=== PATIENT | female | born 1940 | race African-American/Black ===

== ENCOUNTER → 2017-06-22 | Outpatient (CLI) | payer OTHER ==
--- NOTE | 2017-06-22 13:14 | CARD ---
APPROVED REPORT EXAM: Two-dimensional and M-mode echocardiogram with Doppler and color Doppler. Other Information Quality : Average Rhythm : NSR INDICATION Peripheral Edema 2D DIMENSIONS RVDd3.0 (2.9-3.5cm)Left Atrium(2D)4.0 (1.6-4.0cm) IVSd1.2 (0.7-1.1cm)Aortic Root(2D)2.9 (2.0-3.7cm) LVDd4.5 (3.9-5.9cm)LVOT Diameter2.0 (1.8-2.4cm) PWd1.2 (0.7-1.1cm)LVDs2.8 (2.5-4.0cm) FS (%) 36.3 %SV59.8 ml LVEF(%)65.2 (>50%) Aortic Valve AoV Peak Kendrick.140.6cm/sAoV VTI30.7cm AO Peak GR.7.9mmHgLVOT Peak Kendrick.88.2cm/s LVOT VTI 21.67cmAO Mean GR.4mmHg YANNICK (VTI)2.12cm2 Mitral Valve MV E Oxayoybe35.2cm/sMV DECEL [id number] MV A Rvssnarz78.2cm/sMV E Mean Gr.1mmHg MV OCE89ugJ/A Ratio0.8 MV A Fyhgcsnj399nlMFO (PHT)3.85cm2 TDI E/Lateral E'8.0E/Medial E'8.7 Pulmonary Valve PV Peak Tiilxrzr822.1cm/sPV Peak Grad.6mmHg RVOT VTI21.7cm Tricuspid Valve TR P. Bodjtuiv356mp/sRAP LLKKNQRW5dhRu TR Peak Gr.35hmSwDMJC11uzRa Pulmonary Vein S1 Imlbjxhh74.5cm/sD2 Haiogyja05.1cm/s LEFT VENTRICLE The left ventricle is normal size. There is borderline concentric left ventricular hypertrophy. Left ventricle systolic function is normal. The Ejection Fraction is 60-65%. There is normal LV segmental wall motion. Tissue Doppler imaging reveals mild left ventricular diastolic dysfunction. Transmitral Doppler flow pattern is Grade I-abnormal relaxation pattern. There is no ventricular septal defect vi sualized. RIGHT VENTRICLE The right ventricle is normal size. The right ventricular systolic function is normal. ATRIA The left atrium size is normal. The right atrium size is normal. The interatrial septum is intact wit h no evidence for an atrial septal defect or patent foramen ovale as noted on 2-D or Doppler imaging. AORTIC VALVE The aortic valve is normal in structure and function. The aortic valve is trileaflet. Doppler and Col or Flow revealed no significant aortic regurgitation. There is no significant aortic valvular stenosi s. MITRAL VALVE The mitral valve is normal in structure and function. There is no mitral valve stenosis. Doppler and Color Flow revealed trace to mild mitral regurgitation. TRICUSPID VALVE The tricuspid valve is normal in structure. Doppler and Color Flow revealed mild tricuspid regurgitat ion. The PA pressure was estimated at 42 mmHg. There is no tricuspid valve stenosis. PULMONIC VALVE The pulmonic valve is not well visualized. Doppler and Color Flow revealed no pulmonic valvular regur gitation. There is no pulmonic valvular stenosis. GREAT VESSELS The aortic root is normal in size. The ascending aorta is normal in size. Normal pulmonary venous olimpia w (Doppler). The IVC is normal in size and collapses >50% with inspiration. PERICARDIAL EFFUSION There is no evidence of significant pericardial effusion. Critical Notification Critical Value: No <Conclusion> The left ventricle is normal size. Left ventricle systolic function is normal. The Ejection Fraction is 60-65%. There is borderline concentric left ventricular hypertrophy. There is no significant aortic valvular stenosis. Doppler and Color Flow revealed no significant aortic regurgitation. Doppler and Color Flow revealed trace to mild mitral regurgitation. Doppler and Color Flow revealed mild tricuspid regurgitation. The PA pressure was estimated at 42 mmHg.
== END | disposition home or self-care (01) ==
LOC: ECHO 08:27
PROVIDERS: ATTEND Internal Medicine
DX: I31.3 Pericardial effusion (noninflammatory) (principal); I51.7 Cardiomegaly
CPT/HCPCS: 93306

== ENCOUNTER → 2018-02-15 | Outpatient (CLI) | payer OTHER ==
[2018-02-16] MEDS: REGADENOSON 0.4 MG/5 ML DISP.SYRIN. IV (08:39)
== END | disposition home or self-care (01) ==
LOC: NM 08:21
DX: I36.1 Nonrheumatic tricuspid (valve) insufficiency (principal); I12.9 Hypertensive chronic kidney disease with stage 1 through stage 4 chronic kidney disease, or unspecified chronic kidney disease; E11.22 Type 2 diabetes mellitus with diabetic chronic kidney disease; N18.9 Chronic kidney disease, unspecified; I51.7 Cardiomegaly; R06.09 Other forms of dyspnea
CPT/HCPCS: 78452; 93017; 93225; 93306; 96374; 96375; 96376; A9500; J2785

== ENCOUNTER → 2018-06-20 | Outpatient (CLI) | payer OTHER ==
[2018-03-24 15:00] VITALS: BP 156/74
[~2018-06-20] MED LIST: AMLO10TA6 PO; ATOR10TA60 PO; DICL100G18 TP; ESOM40CA PO; FERR300L PO; LOSA1TAB22 PO; METF500T16 PO; METO50TA29 PO; NYST15PO9 TP; SERT100T8 PO; SUCR1TAB35 PO; WARF-31 PO
--- NOTE | 2018-06-20 11:48 | RAD ---
DATE: 06/20/2018 EXAM: MAMMO TRISHA SCREENING BILATERAL HISTORY: Routine screening COMPARISON: None available This study was interpreted with the benefit of Computerized Aided Detection (CAD). Breast Density: FATTY The breast parenchyma is primarily fatty replaced. Breast parenchyma level density A. FINDINGS: 2-D and 3-D tomosynthesis imaging was performed in CC and MLO projections. Several small smooth nodules are noted in both breasts. Multiple smooth nodules such as this are typically benign. These include a cluster of probable small lymph nodes in the posterolateral aspect of the right breast. No spiculated mass or architectural distortion is seen. Benign type calcifications are evident. No suspicious microcalcifications are identified. IMPRESSION: There is no mammographic evidence of malignancy in either breast. BI-RADS CATEGORY: 2 BENIGN FINDING(S) RECOMMENDED FOLLOW-UP: 12M 12 MONTH FOLLOW-UP PQRS compliance statement: Patient information was entered into a reminder system with a target due date for the next mammogram. Mammography is a sensitive method for finding small breast cancers, but it does not detect them all and is not a substitute for careful clinical examination. A negative mammogram does not negate a clinically suspicious finding and should not result in delay in biopsying a clinically suspicious abnormality. "Our facility is accredited by the [employer] Mammography Program."
== END | disposition home or self-care (01) ==
LOC: MAMMO 09:10
PROVIDERS: ATTEND Nurse Practitioner Family
DX: Z12.31 Encounter for screening mammogram for malignant neoplasm of breast (principal); I25.2 Old myocardial infarction; I12.9 Hypertensive chronic kidney disease with stage 1 through stage 4 chronic kidney disease, or unspecified chronic kidney disease; E11.22 Type 2 diabetes mellitus with diabetic chronic kidney disease; N18.9 Chronic kidney disease, unspecified; E78.5 Hyperlipidemia, unspecified; K21.9 Gastro-esophageal reflux disease without esophagitis; E87.6 Hypokalemia; M19.90 Unspecified osteoarthritis, unspecified site; Z86.711 Personal history of pulmonary embolism; Z86.2 Personal history of diseases of the blood and blood-forming organs and certain disorders involving the immune mechanism; Z86.718 Personal history of other venous thrombosis and embolism; Z82.49 Family history of ischemic heart disease and other diseases of the circulatory system; Z80.0 Family history of malignant neoplasm of digestive organs; Z83.3 Family history of diabetes mellitus
CPT/HCPCS: 77063; 77067

== ENCOUNTER 2021-08-05 16:17 | Inpatient (IN) | payer MEDICARE, OTHER ==
[~2021-08-05] VITALS: Ht 162.6 cm; Wt 114.2 kg
[~2021-08-05 16:17] MED LIST changes: +AMLO-187 PO; -AMLO10TA6 PO; -DICL100G18 TP; +DICL100G54 TP; +SERT-268 PO; -SERT100T8 PO
[2021-08-05] MEDS ORDERED: IV NORMAL SALINE 1000ML BAG 1,000 ML IV ONE ×3 (16:30→18:00)
[2021-08-05 16:52] LABS: BILIRUBIN,URINE MODERATE (NEG); CLARITY,URINE TURBID; COLOR,URINE ORANGE; NITRITE,URINE POSITIVE (NEG); PROTEIN,URINE 100 mg/dL (NEG-TRACE)
[2021-08-05 16:59] LABS: BACTERIA,URINE MANY /HPF (0-FEW)
[2021-08-05 17:01] LABS: HYALINE CASTS, URINE FEW /HPF
[2021-08-05 17:10] LABS: BASO % 0 % (0-3); EOS % 0 % (0-3); HEMATOCRIT 43.6 % (36.0-47.0); HEMOGLOBIN 14.4 g/dL (12.0-15.5); LYMPH # 0.6 x10^3/uL (1.0-4.8); LYMPH % 3 % (24-48); MEAN CORPUSCULAR HEMOGLOBIN 27 pg (25-35); MEAN CORPUSCULAR HGB CONC 33 g/dL (31-37); MEAN CORPUSCULAR VOLUME 82 fL (79-100); MONO # 1.1 x10^3/uL (0.0-1.1); MONO % 5 % (0-9); NEUT # 21.2 x10^3/uL (1.8-7.7); NEUT % 92 % (31-73); PLATELET COUNT 103 x10^3/uL (140-400); RED BLOOD COUNT 5.35 x10^6/uL (3.50-5.40); RED CELL DISTRIBUTION WIDTH 15.4 % (11.5-14.5)
[2021-08-05 17:21] LABS: CALCIUM 9.8 mg/dL (8.5-10.1); GFR 13.1; POTASSIUM 4.5 mmol/L (3.5-5.1)
[2021-08-05 17:27] LABS: ALBUMIN 2.8 g/dL (3.4-5.0); ALBUMIN/GLOBULIN RATIO 0.6 (1.0-1.7); MAGNESIUM 1.5 mg/dL (1.8-2.4); TOTAL BILIRUBIN 1.2 mg/dL (0.2-1.0); TOTAL PROTEIN 7.3 g/dL (6.4-8.2)
--- NOTE | 2021-08-05 17:27 | PHYS DOC ---
Past Medical History Past Medical History: Diabetes-Type II, DVT, GERD, Hypertension, Other Additional Past Medical Histor: Heart Murmur, PE, rectal fissure Additional Past Surgical Histo: IVC filter, broken ankle, rotator cuff Smoking Status: Never Smoker Alcohol Use: None Drug Use: None General Adult EDM: Chief Complaint: ALTERED MENTAL STATUS HPI: HPI: Patient is a 80 year old female who was brought here by EMS from home due to altered mental status. Patient lives alone by herself, her daughter check on her on Tuesday, she was doing okay, they went out. She then took her back home. Today she could not get a hold of her so she came by and check on her, found her on the floor next to her bed. Patient was acting confused so EMS were called to take her here for evaluation. Patient has history of hypertension, diabetic, was vaccinated for COVID-19. Upon arrival to ER, patient was awake alert but confused to place and time. Patient was was found to be hypotensive. Patient could not provide any information. Review of Systems: Review of Systems: Not able to obtain due to condition Heart Score: C/O Chest Pain: N/A Risk Factors: Risk Factors: DM, Current or recent (<one month) smoker, HTN, HLP, family history of CAD, obesity. Risk Scores: Score 0 - 3: 2.5% MACE over next 6 weeks - Discharge Home Score 4 - 6: 20.3% MACE over next 6 weeks - Admit for Clinical Observation Score 7 - 10: 72.7% MACE over next 6 weeks - Early Invasive Strategies Current Medications: Current Medications Medications (Trade) Dose Ordered Sig/Kenia Start Time Stop Time Status Last Admin Dose Admin Ceftriaxone Sodium (Rocephin) 1 gm 1X ONCE 08/05/21 17:45 08/05/21 17:46 Sodium Chloride 1,000 ml @ 1,000 mls/hr 1X ONCE 08/05/21 17:15 08/05/21 18:14 08/05/21 17:25 1,000 MLS/HR Allergies: Allergies: Allergies Coded Allergies Type Severity Reaction Last Updated Verified No Known Drug Allergies 01/05/18 No Physical Exam: PE: Constitutional: Well developed, well nourished, moderate acute distress toxic appearance. [] HENT: Normocephalic, atraumatic, bilateral external ears normal, oropharynx is very dried, no oral exudates, nose normal. [] Eyes: PERRLA, EOMI, conjunctiva normal, no discharge. [] Neck: Normal range of motion, no tenderness, supple, no stridor. [] Cardiovascular: Sinus tachycardia, regular rhythm, no murmur [] Lungs & Thorax: Bilateral breath sounds clear to auscultation [] Abdomen: Bowel sounds normal, soft, no tenderness, no masses, no pulsatile masses. [] Skin: Warm, dry, no erythema, no rash. [] Back: No tenderness, no CVA tenderness. [] Extremities: No tenderness, no cyanosis, no clubbing, ROM intact, no edema. [] Neurologic: Alert and oriented to person only, normal motor function, normal sensory function, no focal deficits noted. [] Psychologic: Affect normal, judgement normal, mood normal. [] Current Patient Data: Labs: Laboratory Tests Test 08/05/21 16:45 08/05/21 16:58 Urine Collection Type U cath Urine Color Mcnairy Urine Clarity Turbid Urine pH 5.0 Urine Specific Orange 1.025 Urine Protein 100 mg/dL Urine Glucose (UA) Negative mg/dL Urine Ketones (Stick) 15 mg/dL Urine Blood Large Urine Nitrite Positive Urine Bilirubin Moderate Urine Urobilinogen Dipstick 1.0 mg/dL Urine Leukocyte Esterase Moderate Urine RBC 11-20 /HPF Urine WBC 11-20 /HPF Urine Bacteria Many /HPF Urine Hyaline Casts Few /HPF Urine Mucus Slight /LPF White Blood Count 23.0 x10^3/uL Red Blood Count 5.35 x10^6/uL Hemoglobin 14.4 g/dL Hematocrit 43.6 % Mean Corpuscular Volume 82 fL Mean Corpuscular Hemoglobin 27 pg Mean Corpuscular Hemoglobin Concent 33 g/dL Red Cell Distribution Width 15.4 % Platelet Count 103 x10^3/uL Neutrophils (%) (Auto) 92 % Lymphocytes (%) (Auto) 3 % Monocytes (%) (Auto) 5 % Eosinophils (%) (Auto) 0 % Basophils (%) (Auto) 0 % Neutrophils # (Auto) 21.2 x10^3/uL Lymphocytes # (Auto) 0.6 x10^3/uL Monocytes # (Auto) 1.1 x10^3/uL Eosinophils # (Auto) 0.0 x10^3/uL Basophils # (Auto) 0.0 x10^3/uL Segmented Neutrophils % 45 % Band Neutrophils % 39 % Lymphocytes % 3 % Monocytes % 3 % Metamyelocytes % 10 % Toxic Granulation Present Toxic Vacuolation Present Dohle Bodies Present Platelet Estimate Decreased Sodium Level 141 mmol/L Potassium Level 4.5 mmol/L Chloride Level 105 mmol/L Carbon Dioxide Level 23 mmol/L Anion Gap 13 Blood Urea Nitrogen 38 mg/dL Creatinine 4.0 mg/dL Estimated GFR (Cockcroft-Gault) 13.1 BUN/Creatinine Ratio 10 Glucose Level 204 mg/dL Lactic Acid Level 6.2 mmol/L Calcium Level 9.8 mg/dL Magnesium Level 1.5 mg/dL Total Bilirubin 1.2 mg/dL Aspartate Amino Transf (AST/SGOT) 387 U/L Alanine Aminotransferase (ALT/SGPT) 109 U/L Alkaline Phosphatase 68 U/L Troponin I High Sensitivity 313 ng/L XB-Mvc-K-Type Natriuretic Peptide 88000 pg/mL Total Protein 7.3 g/dL Albumin 2.8 g/dL Albumin/Globulin Ratio 0.6 Current Medications Medications (Trade) Dose Ordered Sig/Kenia Route PRN Reason Start Time Stop Time Status Last Admin Dose Admin Sodium Chloride 1,000 ml @ 1,000 mls/hr 1X ONCE IV 08/05/21 16:30 08/05/21 17:29 DC 08/05/21 17:24 Ceftriaxone Sodium (Rocephin) 1 gm 1X ONCE IVP 08/05/21 17:45 08/05/21 17:46 08/05/21 17:42 Sodium Chloride 1,000 ml @ 1,000 mls/hr 1X ONCE IV 08/05/21 17:15 08/05/21 18:14 08/05/21 17:25 Magnesium Sulfate 50 ml @ 25 mls/hr 1X ONCE IV 08/05/21 17:45 08/05/21 19:44 Laboratory Tests Test 08/05/21 16:45 08/05/21 16:58 Urine Collection Type U cath Urine Color Mcnairy Urine Clarity Turbid Urine pH 5.0 (<5.0-8.0) Urine Specific Orange 1.025 (1.000-1.030) Urine Protein 100 mg/dL (NEG-TRACE) Urine Glucose (UA) Negative mg/dL (NEG) Urine Ketones (Stick) 15 mg/dL (NEG) Urine Blood Large (NEG) Urine Nitrite Positive (NEG) Urine Bilirubin Moderate (NEG) Urine Urobilinogen Dipstick 1.0 mg/dL (0.2 mg/dL) Urine Leukocyte Esterase Moderate (NEG) Urine RBC 11-20 /HPF (0-2) Urine WBC 11-20 /HPF (0-4) Urine Bacteria Many /HPF (0-FEW) Urine Hyaline Casts Few /HPF Urine Mucus Slight /LPF White Blood Count 23.0 x10^3/uL (4.0-11.0) H Red Blood Count 5.35 x10^6/uL (3.50-5.40) Hemoglobin 14.4 g/dL (12.0-15.5) Hematocrit 43.6 % (36.0-47.0) Mean Corpuscular Volume 82 fL (79-100) Mean Corpuscular Hemoglobin 27 pg (25-35) Mean Corpuscular Hemoglobin Concent 33 g/dL (31-37) Red Cell Distribution Width 15.4 % (11.5-14.5) H Platelet Count 103 x10^3/uL (140-400) L Neutrophils (%) (Auto) 92 % (31-73) H Lymphocytes (%) (Auto) 3 % (24-48) L Monocytes (%) (Auto) 5 % (0-9) Eosinophils (%) (Auto) 0 % (0-3) Basophils (%) (Auto) 0 % (0-3) Neutrophils # (Auto) 21.2 x10^3/uL (1.8-7.7) H Lymphocytes # (Auto) 0.6 x10^3/uL (1.0-4.8) L Monocytes # (Auto) 1.1 x10^3/uL (0.0-1.1) Eosinophils # (Auto) 0.0 x10^3/uL (0.0-0.7) Basophils # (Auto) 0.0 x10^3/uL (0.0-0.2) Platelet Estimate Pending Sodium Level 141 mmol/L (136-145) Potassium Level 4.5 mmol/L (3.5-5.1) Chloride Level 105 mmol/L (98-107) Carbon Dioxide Level 23 mmol/L (21-32) Anion Gap 13 (6-14) Blood Urea Nitrogen 38 mg/dL (7-20) H Creatinine 4.0 mg/dL (0.6-1.0) H Estimated GFR (Cockcroft-Gault) 13.1 BUN/Creatinine Ratio 10 (6-20) Glucose Level 204 mg/dL (70-99) H Calcium Level 9.8 mg/dL (8.5-10.1) Magnesium Level Pending Total Bilirubin Pending Aspartate Amino Transferase (AST) Pending Alanine Aminotransferase (ALT) Pending Alkaline Phosphatase Pending Total Protein Pending Albumin Pending Albumin/Globulin Ratio Pending Laboratory Tests 08/05/21 16:58 Laboratory Tests 08/05/21 16:58 EKG: EKG: EKG was done at 1625, heart rate 120 bpm, sinus tachycardia, left axis deviation, no ST segment elevation. [] Radiology/Procedures: Radiology/Procedures: [][facility] [address] [place] [address] IMAGING REPORT Signed PATIENT: AZALEA ROMERO ACCOUNT: [id number] : 1940 LOCATION: ER AGE: 80 SEX: F EXAM STATUS: REG ER ORD. PHYSICIAN: CYRUS MCCABE DO REASON: FELL OUT OF BED, ams PROCEDURE: CT HEAD AND CERVICAL SPINE WO CT HEAD AND C-SPINE WO Date: 08/05/2021 4:40 PM Clinical Indication: Reason: FELL OUT OF BED, ams / Spl. Instructions: / History: Comparison: None. Technique: 5 mm axial tomographic images were obtained of the head without contrast. These were viewed on brain and bone windows. Noncontrast CT of the cervical spine was performed. Sagittal and coronal reformats were performed and evaluated. One or more of the following dose reduction techniques were utilized: Automated exposure control (AEC), Adjustment of mA and/or kV according to patient size, Use of iterative reconstruction technique such as ASiR, CT scan done according to ALARA and image gently/image wisely HEAD FINDINGS: Mild generalized cerebral and cerebellar volume loss. Minimal nonspecific periventricular hypoattenuation, most commonly seen with chronic small vessel ischemic disease. No intra- or extra-axial mass or fluid collection. No acute hemorrhage. The ventricles are normal in size, shape, and morphology. The mosqueda-white matter junction is normal. The basilar cisterns are patent. The visualized paranasal sinuses are normal. The visualized portions of the orbits and globes are normal. The mastoid air cells are clear. No aggressive osseous lesion or fracture. CERVICAL SPINE FINDINGS: No acute fracture. Mild multilevel degenerative disc space height loss most pronounced at C5-C6. Minimal grade 1 anterolisthesis of C4 on C5. Multilevel mild to moderate neuroforaminal narrowing secondary to uncovertebral arthrosis most pronounced at the left C5-C6 neural foramen resulting in moderate to severe neural foraminal narrowing. Multilevel mild facet arthrosis. No paravertebral soft tissue swelling. There is a 1.5 cm hypoattenuating nodule with subtle peripheral calcifications in the right thyroid lobe. No cervical lymphadenopathy. Bilateral carotid atherosclerosis. The visualized aerodigestive tract is normal. Visualized portions of the lung apices are degraded secondary to motion however there is no evidence of acute process IMPRESSION: 1. No acute intracranial process. 2. No acute cervical spine fracture. 3. Mild cerebral volume loss. Mild chronic small vessel ischemic disease. 4. Mild to moderate degenerative cervical spondylosis. Electronically signed by: Barrera Delgado DO (08/05/2021 5:38 PM) [facility] DICTATED and SIGNED BY: BARRERA DELGADO DO DATE: 08/05/21 [id number] 0 Course & Med Decision Making: Course & Med Decision Making Pertinent Labs and Imaging studies reviewed. (See chart for details) Patient is a 80-year-old female who was brought here by EMS from home due to altered mental status. Patient was found to be in severe sepsis, dehydrated, acute renal failure with urinary tract infection. Her magnesium level was low. Patient was given IV fluids in the ED, patient was given IV antibiotic in ED. CT scan her head did not show any acute problem. Patient be admitted to hospital for further evaluation and treatment. Discussed with patient daughter her condition.. Discussed with hospitalist on-call Dr. Richard Norris who agreed to admit the patient. Due to a high probability of clinically significant, life-threatening deterioration, the patient required my highest level of preparedness to intervene emergently and I personally spent this critical care time directly and personally managing the patient. This critical care time included obtaining the history; examining the patient; pulse oximetry; real-time ordering and review of studies; arranging urgent treatment with development of a management plan; evaluation of patient's response to treatment; frequent reassessment; and, discussions with other providers. This critical care time was performed to assess and manage the high probability of imminent, life-threatening deterioration that could result in multi-organ failure. It was not inclusive of separately billable procedures. Please see the Course and Medical Decision Making section and the rest of the note for further information on patient assessment and treatment. Critical care time was [45] minutes which includes time at bedside, spent in discussion of patient's care with specialist and/or family members, with interpretation of laboratory and/or radiological studies and is exclusive of procedures. Dragon Disclaimer: Dragon Disclaimer: This electronic medical record was generated, in whole or in part, using a voice recognition dictation system. Departure Departure Impression: Primary Impression: Dehydration Additional Impressions: Sepsis UTI (urinary tract infection) Renal failure Hypomagnesemia Disposition: ADMITTED INPATIENT Admitting Physician: SARA (Dr. Richard Norris) Condition: IMPROVED Referrals: UNKNOWN PCP NAME (PCP) CYRUS MCCABE DO Aug 05, 2021 17:27
[2021-08-05 17:31] LABS: % BANDS 39 % (0-9); % LYMPHS 3 % (24-48); % METAS 10 % (0-0); % MONOS 3 % (0-10); % SEGS 45 % (35-66); PLT ESTIMATE DECREASED (ADEQUATE); TOXIC VACUOLATION PRESENT
[2021-08-05 17:32] LABS: TOXIC GRANULATION PRESENT
--- NOTE | 2021-08-05 17:41 | RAD ---
CT HEAD AND C-SPINE WO Date: 08/05/2021 4:40 PM Clinical Indication: Reason: FELL OUT OF BED, ams / Spl. Instructions: / History: Comparison: None. Technique: 5 mm axial tomographic images were obtained of the head without contrast. These were view ed on brain and bone windows. Noncontrast CT of the cervical spine was performed. Sagittal and hawley l reformats were performed and evaluated. One or more of the following dose reduction techniques were utilized: Automated exposure control (AEC), Adjustment of mA and/or kV according to patient size, Us e of iterative reconstruction technique such as ASiR, CT scan done according to ALARA and image gentl y/image wisely HEAD FINDINGS: Mild generalized cerebral and cerebellar volume loss. Minimal nonspecific periventricular hypoattenua tion, most commonly seen with chronic small vessel ischemic disease. No intra- or extra-axial mass or fluid collection. No acute hemorrhage. The ventricles are normal in size, shape, and morphology. The mosqueda-white matter junction is normal. The basilar cisterns are paten t. The visualized paranasal sinuses are normal. The visualized portions of the orbits and globes are no rmal. The mastoid air cells are clear. No aggressive osseous lesion or fracture. CERVICAL SPINE FINDINGS: No acute fracture. Mild multilevel degenerative disc space height loss most pronounced at C5-C6. Mini mal grade 1 anterolisthesis of C4 on C5. Multilevel mild to moderate neuroforaminal narrowing seconda ry to uncovertebral arthrosis most pronounced at the left C5-C6 neural foramen resulting in moderate to severe neural foraminal narrowing. Multilevel mild facet arthrosis. No paravertebral soft tissue s welling. There is a 1.5 cm hypoattenuating nodule with subtle peripheral calcifications in the right thyroid l obe. No cervical lymphadenopathy. Bilateral carotid atherosclerosis. The visualized aerodigestive tra ct is normal. Visualized portions of the lung apices are degraded secondary to motion however there is no evidence of acute process IMPRESSION: 1. No acute intracranial process. 2. No acute cervical spine fracture. 3. Mild cerebral volume loss. Mild chronic small vessel ischemic disease. 4. Mild to moderate degenerative cervical spondylosis. Electronically signed by: Ernesto Delgado DO (08/05/2021 5:38 PM) [facility]
[2021-08-05] MEDS ORDERED: ONDANSETRON PF 4 MG/2 ML VIAL. IVP PRN ×2 (17:45→18:45)
[2021-08-05] MEDS ORDERED: MAGNESIUM SULFATE 2GM 50 ML IV ONE (17:45)
[2021-08-05] MEDS ORDERED: cefTRIAXone IV Push 1 GM VIAL. IVP ONE (17:45)
[2021-08-05] MEDS: IV NORMAL SALINE 1000ML BAG 1,000 ML IV SCH ×2 (17:45→18:45)
--- NOTE | 2021-08-05 18:07 | RAD ---
EXAM: PELVIS 1 VIEW. HISTORY: Fall, pelvic pain. COMPARISON: None. FINDINGS: No fractures are identified. The joint spaces and alignment of both hips are maintained. Th ere are moderate degenerative changes of the lower lumbar spine. IMPRESSION: 1. No fracture. Electronically signed by: Leslie Burks MD (08/05/2021 6:05 PM) [facility]
--- NOTE | 2021-08-05 18:08 | RAD ---
EXAM: CHEST ONE VIEW. HISTORY: Shortness of breath, fall. COMPARISON: 03/21/2018. FINDINGS: A frontal view of the chest is obtained. There are interstitial and airspace opacities in both bases. The inspiration is small. There is a tico cified granuloma on the left. There is no pneumothorax or pleural effusion. The heart is not enlarged . IMPRESSION: 1. Bibasilar atelectasis versus multifocal atypical infiltrates. Electronically signed by: Leslie Burks MD (08/05/2021 6:05 PM) [facility]
--- NOTE | 2021-08-05 18:42 | EKG ---
[facility] [address] [place] [address] Test Date: 2021-08-05 Test Time: 16:24:42 Pat Name: AZALEA ROMERO Department: Room: Gender: F Clinical Research Director: : 1940 Requested By: CYRUS MCCABE Order Number: [id number] Reading MD: Denver Stubbs Measurements Intervals Lee Rate: 120 P: 41 NE: 178 QRS: -21 QRSD: 80 T: 105 QT: 292 QTc: 417 Interpretive Statements SINUS TACHYCARDIA LEFTWARD AXIS CONSIDER LEFT VENTRICULAR HYPERTROPHY T ABNORMALITY IN HIGH LATERAL LEADS ABNORMAL ECG Electronically Signed On 08-09-2021 9:27:31 [employer]ICK [employer] SUPERVIS[employer] by Denver Stubbs
[2021-08-05] MEDS ORDERED: ACETAMINOPHEN 325 MG TABLET. PO PRN (18:45)
[2021-08-05] MEDS ORDERED: DEXTROSE 50% 25 GM / 50ML DISP.SYRIN. IV PRN (18:45)
[2021-08-05] MEDS ORDERED: PROCHLORPERAZINE 10 MG/2 ML VIAL. IV PRN (18:45)
[2021-08-05] MEDS ORDERED: ZOLPIDEM 5 MG TABLET. PO PRN (18:45)
[2021-08-05] MEDS ORDERED: SENNOSIDES 8.6 MG TABLET PO PRN (18:45)
[2021-08-05] MEDS ORDERED: DOCUSATE SODIUM 100 MG CAPSULE. PO PRN (18:45)
[2021-08-05] MEDS ORDERED: LORazepam 0.5 MG TABLET PO PRN (18:45)
--- NOTE | 2021-08-05 18:47 | PDOC1 ---
History and Physical Date of Service: DOS: DATE: 08/05/21 TIME: 18:30 Chief Complaint: Chief Complain: Found unresponsive History of Present Illness: HPI: History obtained from discussion with the ED physician, daughter, and chart review: 80-year-old female who has a past medical history of diabetes mellitus type 2, hypertension, GERD, dyslipidemia who is brought in due to altered mental status. Patient lives alone by herself and has a daughter who checks up on her on Tuesday but she lives in [place]. Last time daughter saw the patient was on Tuesday and she has not heard from the patient since that time. Apparently today daughter came by to check on her and found her on the floor next to her bed. There was no incontinence. Patient was acting confused so EMS was called in order to bring the patient to the ED for further evaluation. Patient is vaccinated for COVID-19. Patient's chart, labs, images were reviewed and discussed with RN patient was awake and alert but confused to place and time. Past Medical/Surgical History: PMH/PSH: Past Medical History: Diabetes-Type II, DVT, GERD, Hypertension, Heart Murmur, PE, rectal fissure Additional Past Surgical Histo: IVC filter, broken ankle, rotator cuff Allergies: Allergies: Coded Allergies: No Known Drug Allergies (Unverified , 01/05/18) Family History: Family History: Reviewed with no relevant findings Social History: Social History: Denies any alcohol drug or tobacco abuse Current Medications: Current Medications Current Medications Sodium Chloride 1,000 ml @ 1,000 mls/hr 1X ONCE IV Last administered on 08/05/21at 17:24; Start 08/05/21 at 16:30; Stop 08/05/21 at 17:29; Status DC Ceftriaxone Sodium (Rocephin) 1 gm 1X ONCE IVP Last administered on 08/05/21at 17:42; Start 08/05/21 at 17:45; Stop 08/05/21 at 17:46; Status DC Sodium Chloride 1,000 ml @ 1,000 mls/hr 1X ONCE IV Last administered on 08/05/21at 17:25; Start 08/05/21 at 17:15; Stop 08/05/21 at 18:14; Status DC Magnesium Sulfate 50 ml @ 25 mls/hr 1X ONCE IV ; Start 08/05/21 at 17:45; Stop 08/05/21 at 19:44 Ondansetron HCl (Zofran) 4 mg PRN Q8HRS PRN IVP NAUSEA/VOMITING; Start 08/05/21 at 17:45; Stop 08/06/21 at 17:44 Sodium Chloride 1,000 ml @ 100 mls/hr Q10H IV ; Start 08/05/21 at 17:45; Stop 08/06/21 at 17:44 Sodium Chloride 1,000 ml @ 1,000 mls/hr 1X ONCE IV ; Start 08/05/21 at 18:00; Stop 08/05/21 at 18:59 Active Scripts Active Atorvastatin Calcium 10 Mg Tablet 10 Mg PO QHS 30 Days Ferrous Sulfate 300 Mg/5 Ml Liquid 300 Mg PO BIDWMEALS 30 Days Amlodipine Besylate 10 Mg Tablet 10 Mg PO DAILY 30 Days Reported Metformin Hcl 500 Mg Tablet 500 Mg PO BIDWMEALS Voltaren (Diclofenac Sodium) 100 Gm Gel..gram. 2 Gm TP QID Nystatin 15 Gm Powder 1 Luis Alberto TP TID Nexium Capsule (Esomeprazole Magnesium) 40 Mg Capsule.dr 40 Mg PO DAILYAC Losartan-Hctz 100-25 Mg Tab (Losartan/Hydrochlorothiazide) 1 Each Tablet 1 Tab PO DAILY Carafate (Sucralfate) 1 Gm Tablet 1 Gm PO QID Sertraline Hcl 100 Mg Tablet 100 Mg PO PRN QHS PRN ROS: Review of Systems Review of System REVIEW OF SYSTEMS: GENERAL: Denies weakness SKIN: No bruising, hair changes or rashes. EYES: No blurred, double or loss of vision. NOSE AND THROAT: No history of nosebleeds, hoarseness or sore throat. HEART: No history of palpitations, chest pain or shortness of breath on exertion. LUNGS: Denies cough, hemoptysis, wheezing or shortness of breath. GASTROINTESTINAL: Denies changes in appetite, nausea, vomiting, diarrhea or constipation. GENITOURINARY: No history of frequency, urgency, hesitancy or nocturia. NEUROLOGIC: Denies history of numbness, tingling, or tremor. PSYCHIATRIC: No history of panic, anxiety or depression. ENDOCRINE: No history of heat or cold intolerance, polyuria or polydipsia. EXTREMITIES: Denies joint pain, pain on walking or stiffness. Physical Exam: Vital Signs: Vital Signs Date Time Temp Pulse Resp B/P (MAP) Pulse Ox O2 Delivery O2 Flow Rate FiO2 08/05/21 16:17 98.2 121 24 100/59 (73) 78 Room Air 98.2 Physcial Exam: GEN: No apparent distress. Alert and oriented HEENT: Normal cephalic, atraumatic, external auditory canals are patent EYES: Extraocular muscles are intact, pupil are equally round and reactive to light and accommodation MUSCULOSKELETAL: Well developed , well nourished, good range of motion ENDOCRINE: No thyromegaly was palpated LYMPHATICS: No cervical chain or axillary nodes were noted HEMATOPOIETIC: No bruising NECK: Supple, no JVD, no thyromegaly was noted LUNGS: Clear to auscultation in all lung che without rhonchi or wheezing HEART: RRR, S!, S2 present. Peripheral pulses intact, no obvious murmurs noted ABDOMEN: Soft, nontender. Positive bowel sounds, no organomegaly, normal bowel sounds EXTREMITIES: Without clubbing, cyanosis, or edema. Pedal pulses intact. Negative Homans sign NEUROLOGIC: Normal speech and tone. A&O x 3, moves all extremities, no obvious focal deficits PSYCHIATRIC: Normal affect, normal mood. Stable SKIN: No ulcerations or rashes, good skin turgor, no jaundice VASCULAR: Good capillary refill, neurovascular bundle appears to be intact Labs: Labs: Laboratory Tests Test 08/05/21 16:45 08/05/21 16:58 08/05/21 17:32 Urine Collection Type U cath Urine Color [place] Urine Clarity Turbid Urine pH 5.0 (<5.0-8.0) Urine Specific [place] 1.025 (1.000-1.030) Urine Protein 100 mg/dL (NEG-TRACE) Urine Glucose (UA) Negative mg/dL (NEG) Urine Ketones (Stick) 15 mg/dL (NEG) Urine Blood Large (NEG) Urine Nitrite Positive (NEG) Urine Bilirubin Moderate (NEG) Urine Urobilinogen Dipstick 1.0 mg/dL (0.2 mg/dL) Urine Leukocyte Esterase Moderate (NEG) Urine RBC 11-20 /HPF (0-2) Urine WBC 11-20 /HPF (0-4) Urine Bacteria Many /HPF (0-FEW) Urine Hyaline Casts Few /HPF Urine Mucus Slight /LPF White Blood Count 23.0 x10^3/uL (4.0-11.0) Red Blood Count 5.35 x10^6/uL (3.50-5.40) Hemoglobin 14.4 g/dL (12.0-15.5) Hematocrit 43.6 % (36.0-47.0) Mean Corpuscular Volume 82 fL (79-100) Mean Corpuscular Hemoglobin 27 pg (25-35) Mean Corpuscular Hemoglobin Concent 33 g/dL (31-37) Red Cell Distribution Width 15.4 % (11.5-14.5) Platelet Count 103 x10^3/uL (140-400) Neutrophils (%) (Auto) 92 % (31-73) Lymphocytes (%) (Auto) 3 % (24-48) Monocytes (%) (Auto) 5 % (0-9) Eosinophils (%) (Auto) 0 % (0-3) Basophils (%) (Auto) 0 % (0-3) Neutrophils # (Auto) 21.2 x10^3/uL (1.8-7.7) Lymphocytes # (Auto) 0.6 x10^3/uL (1.0-4.8) Monocytes # (Auto) 1.1 x10^3/uL (0.0-1.1) Eosinophils # (Auto) 0.0 x10^3/uL (0.0-0.7) Basophils # (Auto) 0.0 x10^3/uL (0.0-0.2) Segmented Neutrophils % 45 % (35-66) Band Neutrophils % 39 % (0-9) Lymphocytes % 3 % (24-48) Monocytes % 3 % (0-10) Metamyelocytes % 10 % (0-0) Toxic Granulation Present Toxic Vacuolation Present Dohle Bodies Present Platelet Estimate Decreased (ADEQUATE) Sodium Level 141 mmol/L (136-145) Potassium Level 4.5 mmol/L (3.5-5.1) Chloride Level 105 mmol/L (98-107) Carbon Dioxide Level 23 mmol/L (21-32) Anion Gap 13 (6-14) Blood Urea Nitrogen 38 mg/dL (7-20) Creatinine 4.0 mg/dL (0.6-1.0) Estimated GFR (Cockcroft-Gault) 13.1 BUN/Creatinine Ratio 10 (6-20) Glucose Level 204 mg/dL (70-99) Lactic Acid Level 6.2 mmol/L (0.4-2.0) Calcium Level 9.8 mg/dL (8.5-10.1) Magnesium Level 1.5 mg/dL (1.8-2.4) Total Bilirubin 1.2 mg/dL (0.2-1.0) Aspartate Amino Transf (AST/SGOT) 387 U/L (15-37) Alanine Aminotransferase (ALT/SGPT) 109 U/L (14-59) Alkaline Phosphatase 68 U/L (46-116) Troponin I High Sensitivity 313 ng/L (4-50) UB-Aul-K-Type Natriuretic Peptide 93129 pg/mL (0-449) Total Protein 7.3 g/dL (6.4-8.2) Albumin 2.8 g/dL (3.4-5.0) Albumin/Globulin Ratio 0.6 (1.0-1.7) SARS-CoV-2 Antigen (Rapid) Negative (NEGATIVE) Laboratory Tests Test 08/05/21 16:45 08/05/21 16:58 08/05/21 17:32 Urine Collection Type U cath Urine Color [place] Urine Clarity Turbid Urine pH 5.0 (<5.0-8.0) Urine Specific [place] 1.025 (1.000-1.030) Urine Protein 100 mg/dL (NEG-TRACE) Urine Glucose (UA) Negative mg/dL (NEG) Urine Ketones (Stick) 15 mg/dL (NEG) Urine Blood Large (NEG) Urine Nitrite Positive (NEG) Urine Bilirubin Moderate (NEG) Urine Urobilinogen Dipstick 1.0 mg/dL (0.2 mg/dL) Urine Leukocyte Esterase Moderate (NEG) Urine RBC 11-20 /HPF (0-2) Urine WBC 11-20 /HPF (0-4) Urine Bacteria Many /HPF (0-FEW) Urine Hyaline Casts Few /HPF Urine Mucus Slight /LPF White Blood Count 23.0 x10^3/uL (4.0-11.0) Red Blood Count 5.35 x10^6/uL (3.50-5.40) Hemoglobin 14.4 g/dL (12.0-15.5) Hematocrit 43.6 % (36.0-47.0) Mean Corpuscular Volume 82 fL (79-100) Mean Corpuscular Hemoglobin 27 pg (25-35) Mean Corpuscular Hemoglobin Concent 33 g/dL (31-37) Red Cell Distribution Width 15.4 % (11.5-14.5) Platelet Count 103 x10^3/uL (140-400) Neutrophils (%) (Auto) 92 % (31-73) Lymphocytes (%) (Auto) 3 % (24-48) Monocytes (%) (Auto) 5 % (0-9) Eosinophils (%) (Auto) 0 % (0-3) Basophils (%) (Auto) 0 % (0-3) Neutrophils # (Auto) 21.2 x10^3/uL (1.8-7.7) Lymphocytes # (Auto) 0.6 x10^3/uL (1.0-4.8) Monocytes # (Auto) 1.1 x10^3/uL (0.0-1.1) Eosinophils # (Auto) 0.0 x10^3/uL (0.0-0.7) Basophils # (Auto) 0.0 x10^3/uL (0.0-0.2) Segmented Neutrophils % 45 % (35-66) Band Neutrophils % 39 % (0-9) Lymphocytes % 3 % (24-48) Monocytes % 3 % (0-10) Metamyelocytes % 10 % (0-0) Toxic Granulation Present Toxic Vacuolation Present Dohle Bodies Present Platelet Estimate Decreased (ADEQUATE) Sodium Level 141 mmol/L (136-145) Potassium Level 4.5 mmol/L (3.5-5.1) Chloride Level 105 mmol/L (98-107) Carbon Dioxide Level 23 mmol/L (21-32) Anion Gap 13 (6-14) Blood Urea Nitrogen 38 mg/dL (7-20) Creatinine 4.0 mg/dL (0.6-1.0) Estimated GFR (Cockcroft-Gault) 13.1 BUN/Creatinine Ratio 10 (6-20) Glucose Level 204 mg/dL (70-99) Lactic Acid Level 6.2 mmol/L (0.4-2.0) Calcium Level 9.8 mg/dL (8.5-10.1) Magnesium Level 1.5 mg/dL (1.8-2.4) Total Bilirubin 1.2 mg/dL (0.2-1.0) Aspartate Amino Transf (AST/SGOT) 387 U/L (15-37) Alanine Aminotransferase (ALT/SGPT) 109 U/L (14-59) Alkaline Phosphatase 68 U/L (46-116) Troponin I High Sensitivity 313 ng/L (4-50) MF-Ehp-S-Type Natriuretic Peptide 27564 pg/mL (0-449) Total Protein 7.3 g/dL (6.4-8.2) Albumin 2.8 g/dL (3.4-5.0) Albumin/Globulin Ratio 0.6 (1.0-1.7) SARS-CoV-2 Antigen (Rapid) Negative (NEGATIVE) Images: Images PROCEDURE: CHEST AP ONLY IMPRESSION: 1. Bibasilar atelectasis versus multifocal atypical infiltrates. Assessment/Plan Assessment/Plan Sepsis Bilateral atypical pneumonia, possible gram-negative organism Acute UTI Acute infectious and metabolic encephalopathy Lactic acidosis WES due to vasomotor nephropathy Hyperglycemia uncontrolled Elevated BNP History of hypertension History of depression anxiety History of diabetes mellitus History of GERD Admit to hospitalist service for further management R ISS and Accu-Cheks Continue IV fluids Continue empiric IV antibiotics Pending urine cultures Pending TSH, B12, folate levels Pending urine toxic drug screen Delirium prevention modalities Provide adequate lighting (open curtains during the day, turn the lights off at night) Provide frequent personal contact with family, friends, and staff or TV Encourage early and frequent mobilization Rehab screening ordered IV Haldol as needed for agitation, consider sitter as needed if non-redirectable agitation Avoid physical restraints, catheters or tubes, and benzodiazepines Nutrition consult if there is malnutrition or concern for vitamin deficiencies Hold all antihypertensive medications at this time due to sepsis alert Avoid nephrotoxic agents Strict I's and O's Heparin for DVT prophylaxis ADA diet Full code Discussed with RN and SW Dispo inpatient management as above DPOA is the daughter A total of 45 minutes of critical care time was spent in reviewing chart, labs, and images. Discussed with RN and SW. In addition to my E/M visit, advance care planning done with A total time of 20 minutes was spent from 530 to 540 face to face in discussion with the daughter regarding the patient's goals of care, CODE STATUS. Justifications for Admission Other Justification EDUARDA DOWD MD Aug 05, 2021 18:47
[2021-08-05 19:00] VITALS: BP 110/55
[2021-08-05 23:00] VITALS: BP 132/77
[2021-08-06] MEDS: DOXYCYCLINE HYCLATE 100 MG in IV DEXTROSE 5% 100ML 100 ML IV SCH ×2 (00:47→10:49)
[2021-08-06 01:22] LABS: BASO % 0 % (0-3); EOS # 0.8 x10^3/uL (0.0-0.7); EOS % 4 % (0-3); HEMATOCRIT 44.4 % (36.0-47.0); HEMOGLOBIN 14.5 g/dL (12.0-15.5); LYMPH # 0.5 x10^3/uL (1.0-4.8); LYMPH % 2 % (24-48); MEAN CORPUSCULAR HEMOGLOBIN 27 pg (25-35); MEAN CORPUSCULAR HGB CONC 33 g/dL (31-37); MEAN CORPUSCULAR VOLUME 82 fL (79-100); MONO # 0.9 x10^3/uL (0.0-1.1); MONO % 4 % (0-9); NEUT # 17.3 x10^3/uL (1.8-7.7); NEUT % 89 % (31-73); PLATELET COUNT 83 x10^3/uL (140-400); RED CELL DISTRIBUTION WIDTH 15.5 % (11.5-14.5); WHITE BLOOD COUNT 19.4 x10^3/uL (4.0-11.0)
[2021-08-06 02:03] LABS: CALCIUM 9.4 mg/dL (8.5-10.1); CREATININE 3.7 mg/dL (0.6-1.0); GFR 14.3; MAGNESIUM 1.5 mg/dL (1.8-2.4); PHOSPHORUS 3.5 mg/dL (2.6-4.7); POTASSIUM 4.1 mmol/L (3.5-5.1)
[2021-08-06 03:00] VITALS: BP 122/57
[2021-08-06] MEDS: IV NORMAL SALINE 1000ML BAG 1,000 ML IV SCH ×3 (03:45→14:22)
[2021-08-06] MEDS ORDERED: CETI10TA16 PO (05:11)
[2021-08-06] MEDS ORDERED: FAMO40TA4 PO (05:11)
[2021-08-06] MEDS ORDERED: FURO20TA3 PO (05:11)
[2021-08-06] MEDS ORDERED: CHOL500021 PO (05:11)
[2021-08-06 07:00] VITALS: BP 117/63
[2021-08-06] MEDS: PANTOPRAZOLE 40 MG TABLET.DR. PO SCH (07:30)
[2021-08-06] MEDS: INSULIN LISPRO 300 UNITS/3 ML VIAL. SQ SCH ×3 (08:00→17:00)
[2021-08-06] MEDS: ENOXAPARIN 30 MG/0.3 ML SYRINGE. SQ SCH (10:52)
[2021-08-06 11:00] VITALS: BP 125/65
--- NOTE | 2021-08-06 11:12 | NUR ---
SW following. Discussed with RN, pt from home alone, 5L (does not use oxygen at home), clear liquid diet, COVID-19 negative. PT/OT ordered. ID consulted. Pt was found down at home. SW will continue to follow.
--- NOTE | 2021-08-06 12:13 | PDOC ---
[employer] PROGRESS NOTE Date of Service DOS: DATE: 08/06/21 TIME: 12:09 Chief Complaint Chief Complaint Sepsis Bilateral atypical pneumonia, possible gram-negative organism Acute UTI Acute infectious and metabolic encephalopathy Lactic acidosis WES due to vasomotor nephropathy Hyperglycemia uncontrolled Elevated BNP History of hypertension History of depression anxiety History of diabetes mellitus History of GERD History of Present Illness History of Present Illness 08/06/21 Patient seen and examined Reviewed chart Discussed with RN Mitts in place for patient safety Unsure of patient's baseline mental status Vitals/I&O Vitals/I&O: Vital Signs Date Time Temp Pulse Resp B/P (MAP) Pulse Ox O2 Delivery O2 Flow Rate FiO2 08/06/21 07:00 98.2 106 24 117/63 (81) 92 Nasal Cannula 6.0 98.2 I & O 08/05/21 08/05/21 08/06/21 15:00 23:00 07:00 Intake Total 2000 ml Output Total 0 ml 200 ml Balance 2000 ml -200 ml Physical Exam General: Alert, No acute distress, Other (pleasantly confused) Heart: Regular rate Lungs: Clear Extremities: No edema Skin: No rashes Labs Labs: Laboratory Tests Test 08/05/21 16:45 08/05/21 16:58 08/05/21 17:32 08/06/21 01:10 Urine Collection Type U cath Urine Color [place] Urine Clarity Turbid Urine pH 5.0 (<5.0-8.0) Urine Specific [place] 1.025 (1.000-1.030) Urine Protein 100 mg/dL (NEG-TRACE) Urine Glucose (UA) Negative mg/dL (NEG) Urine Ketones (Stick) 15 mg/dL (NEG) Urine Blood Large (NEG) Urine Nitrite Positive (NEG) Urine Bilirubin Moderate (NEG) Urine Urobilinogen Dipstick 1.0 mg/dL (0.2 mg/dL) Urine Leukocyte Esterase Moderate (NEG) Urine RBC 11-20 /HPF (0-2) Urine WBC 11-20 /HPF (0-4) Urine Bacteria Many /HPF (0-FEW) Urine Hyaline Casts Few /HPF Urine Mucus Slight /LPF White Blood Count 23.0 x10^3/uL (4.0-11.0) 19.4 x10^3/uL (4.0-11.0) Red Blood Count 5.35 x10^6/uL (3.50-5.40) 5.40 x10^6/uL (3.50-5.40) Hemoglobin 14.4 g/dL (12.0-15.5) 14.5 g/dL (12.0-15.5) Hematocrit 43.6 % (36.0-47.0) 44.4 % (36.0-47.0) Mean Corpuscular Volume 82 fL (79-100) 82 fL (79-100) Mean Corpuscular Hemoglobin 27 pg (25-35) 27 pg (25-35) Mean Corpuscular Hemoglobin Concent 33 g/dL (31-37) 33 g/dL (31-37) Red Cell Distribution Width 15.4 % (11.5-14.5) 15.5 % (11.5-14.5) Platelet Count 103 x10^3/uL (140-400) 83 x10^3/uL (140-400) Neutrophils (%) (Auto) 92 % (31-73) 89 % (31-73) Lymphocytes (%) (Auto) 3 % (24-48) 2 % (24-48) Monocytes (%) (Auto) 5 % (0-9) 4 % (0-9) Eosinophils (%) (Auto) 0 % (0-3) 4 % (0-3) Basophils (%) (Auto) 0 % (0-3) 0 % (0-3) Neutrophils # (Auto) 21.2 x10^3/uL (1.8-7.7) 17.3 x10^3/uL (1.8-7.7) Lymphocytes # (Auto) 0.6 x10^3/uL (1.0-4.8) 0.5 x10^3/uL (1.0-4.8) Monocytes # (Auto) 1.1 x10^3/uL (0.0-1.1) 0.9 x10^3/uL (0.0-1.1) Eosinophils # (Auto) 0.0 x10^3/uL (0.0-0.7) 0.8 x10^3/uL (0.0-0.7) Basophils # (Auto) 0.0 x10^3/uL (0.0-0.2) 0.0 x10^3/uL (0.0-0.2) Segmented Neutrophils % 45 % (35-66) Band Neutrophils % 39 % (0-9) Lymphocytes % 3 % (24-48) Monocytes % 3 % (0-10) Metamyelocytes % 10 % (0-0) Toxic Granulation Present Toxic Vacuolation Present Dohle Bodies Present Platelet Estimate Decreased (ADEQUATE) Sodium Level 141 mmol/L (136-145) 143 mmol/L (136-145) Potassium Level 4.5 mmol/L (3.5-5.1) 4.1 mmol/L (3.5-5.1) Chloride Level 105 mmol/L (98-107) 109 mmol/L (98-107) Carbon Dioxide Level 23 mmol/L (21-32) 21 mmol/L (21-32) Anion Gap 13 (6-14) 13 (6-14) Blood Urea Nitrogen 38 mg/dL (7-20) 41 mg/dL (7-20) Creatinine 4.0 mg/dL (0.6-1.0) 3.7 mg/dL (0.6-1.0) Estimated GFR (Cockcroft-Gault) 13.1 14.3 BUN/Creatinine Ratio 10 (6-20) Glucose Level 204 mg/dL (70-99) 151 mg/dL (70-99) Lactic Acid Level 6.2 mmol/L (0.4-2.0) 4.7 mmol/L (0.4-2.0) Calcium Level 9.8 mg/dL (8.5-10.1) 9.4 mg/dL (8.5-10.1) Magnesium Level 1.5 mg/dL (1.8-2.4) 1.5 mg/dL (1.8-2.4) Total Bilirubin 1.2 mg/dL (0.2-1.0) Aspartate Amino Transf (AST/SGOT) 387 U/L (15-37) Alanine Aminotransferase (ALT/SGPT) 109 U/L (14-59) Alkaline Phosphatase 68 U/L (46-116) Creatine Kinase 94486 U/L (26-192) Troponin I High Sensitivity 313 ng/L (4-50) OD-Kip-J-Type Natriuretic Peptide 96643 pg/mL (0-449) Total Protein 7.3 g/dL (6.4-8.2) Albumin 2.8 g/dL (3.4-5.0) Albumin/Globulin Ratio 0.6 (1.0-1.7) Vitamin B12 Level 946 pg/mL (247-911) Thyroid Stimulating Hormone (TSH) 1.860 uIU/mL (0.358-3.74) SARS-CoV-2 RNA (LIBERTAD) Negative (Negative) SARS-CoV-2 Antigen (Rapid) Negative (NEGATIVE) Phosphorus Level 3.5 mg/dL (2.6-4.7) Test 08/06/21 08:30 Lactic Acid Level 3.5 mmol/L (0.4-2.0) Assessment and Plan Assessmemt and Plan Problems Medical Problems: (1) Dehydration Status: Acute (2) Hypomagnesemia Status: Acute (3) Renal failure Status: Acute (4) Sepsis Status: Acute (5) UTI (urinary tract infection) Status: Acute Sepsis Bilateral atypical pneumonia, possible gram-negative organism Acute UTI Acute infectious and metabolic encephalopathy Lactic acidosis WES due to vasomotor nephropathy Hyperglycemia uncontrolled Elevated BNP History of hypertension History of depression anxiety History of diabetes mellitus History of GERD Plan: Continue IV Rocephin and doxycycline Continue mitts for patient safety Trend labs Supplemental O2 as needed Encourage PO intake DVT prophylaxis Full code Comment Review of Relevant I have reviewed the following items crys (where applicable) has been applied. Medications: Current Medications Medications (Trade) Dose Ordered Sig/Kenia Route PRN Reason Start Time Stop Time Status Last Admin Dose Admin Sodium Chloride 1,000 ml @ 1,000 mls/hr 1X ONCE IV 08/05/21 16:30 08/05/21 17:29 DC 08/05/21 17:24 Ceftriaxone Sodium (Rocephin) 1 gm 1X ONCE IVP 08/05/21 17:45 08/05/21 17:46 DC 08/05/21 17:42 Sodium Chloride 1,000 ml @ 1,000 mls/hr 1X ONCE IV 08/05/21 17:15 08/05/21 18:14 DC 08/05/21 17:25 Magnesium Sulfate 50 ml @ 25 mls/hr 1X ONCE IV 08/05/21 17:45 08/05/21 19:44 DC 08/06/21 00:47 Sodium Chloride 1,000 ml @ 1,000 mls/hr 1X ONCE IV 08/05/21 18:00 08/05/21 18:59 DC 08/05/21 19:00 Enoxaparin Sodium (Lovenox 30mg Syringe) 30 mg DAILY SQ 08/06/21 09:00 08/06/21 10:52 Doxycycline Hyclate 100 mg/ Dextrose 100 ml @ 50 mls/hr BID IV 08/05/21 20:00 08/06/21 11:39 DC 08/06/21 10:49 Justifications for Admission Other Justification Altered mental status and UTI, sepsis KAMRYN URIAS III DO Aug 06, 2021 12:13
[2021-08-06] MEDS: MULTIVITAMIN with MINERAL TABLET. PO SCH (12:31)
[2021-08-06] MEDS: ASCORBIC ACID 500 MG TABLET PO SCH (12:31)
[2021-08-06] MEDS: PIPERACILLIN/TAZOBACTAM 2.25 GM in IV NORMAL SALINE 50ML 50 ML IV SCH ×3 (12:32→23:32)
[2021-08-06] MEDS ORDERED: IV NORMAL SALINE 1000ML BAG 1,000 ML IV ONE (13:15)
[2021-08-06 15:00] VITALS: BP 108/60
--- NOTE | 2021-08-06 16:04 | NUR ---
Wound/Ostomy Care Wound Type/Assessment: Wound care consult for right hip wound. Patient has what appears to be pressure ulcer from laying on some kind of tubing. Pt also has maceration to bilateral buttocks from incontinence of stool. Pt has been having liquid stool. Pt became nauseous and vomited during wound care. Sheets and gown changed and reported to Nuria ANDREWS. Treatment Recommendations/Plan: Cleanse wounds. Apply calazime to buttocks BID and PRN. Apply xeroform and ABD with tape to right hip every 2-3 days. Education provided: PU prevention and WC POC discussed with pt but will need reinforcement due to mental status Offloading surface/device: TQ2H, float heels. Foams placed on heels for protection as they are soft. Recommended Referrals/Tests: na Discharge Recommendations for dressings: see above
[2021-08-06] MEDS ORDERED: cefTRIAXone IV Push 1 GM VIAL. IVP SCH (17:00)
[2021-08-06 19:00] VITALS: BP 112/63
--- NOTE | 2021-08-06 20:03 | CONS ---
DATE OF CONSULTATION: 08/06/2021 REQUESTING PHYSICIAN: Richard Norris MD REASON FOR CONSULTATION: Sepsis and gram-negative bacteremia. INDICATIONS: This is a 80-year-old -[place] female who lives at home, apparently by herself. She was found down, found by her daughter. The patient was confused. EMS was called and the patient was brought in. The patient does have right hip wound looks fresh probably from lying on that side for a long period of time. The patient has leukocytosis. The patient has lactic acidosis, abnormal urinalysis, abnormal chest x-ray. The patient has been started on Rocephin, doxycycline and consult has been requested. Now, blood culture is positive with gram-negative dylan. She also has acute kidney injury. The patient is more awake, able to communicate, but she is still confused and repeats things as well as memory is very poor. PAST MEDICAL HISTORY: Positive for, she has hypertension, hyperlipidemia, deep venous thrombosis, pulmonary embolism, gastroesophageal reflux disease. She has had breast lump removal done. She has had ankle surgery and rotator cuff surgery, diabetes, obesity, psychiatric problems, skin cancer. SOCIAL HISTORY: Unable to obtain other than she lives alone. ALLERGIES: No known drug allergies. CURRENT MEDICATIONS: Reviewed. REVIEW OF SYSTEMS: As in HPI. All other systems reviewed are negative. PHYSICAL EXAMINATION: GENERAL: On examination, alert, but not oriented female who is able to answer simple questions, not in distress. VITAL SIGNS: Temperature 98.2, pulse 106, respirations 24, blood pressure 117/63. HEENT: Both pupils are round and reacting. No conjunctival lesion, no lesion in the mouth. NECK: Supple, no JVP, no lymphadenopathy. LUNGS: Clear. HEART: S1, S2 regular. ABDOMEN: Soft, nontender, no organomegaly. EXTREMITIES: No edema or cyanosis. SKIN: Unremarkable except right hip has a superficial stage 2 wound. NEUROLOGICAL: The patient does move all the extremities, but keeps repeating sentences and not able to remember or able to provide any history or information. LABORATORY DATA: White count is down from 23,000 to 19,400, hemoglobin 14.5, platelets are 83,000. BUN and creatinine is 41 and 3.7. Lactic acid was up to 6.2, it improved to 3.5. CK is 13,914 and blood culture is positive with gram-negative dylan. Urine culture is mixed urogenital maite so far. Pelvic CT, head and spine CT unremarkable. Chest x-ray showed bibasilar atelectasis versus multifocal pneumonia. IMPRESSION: 1. Sepsis with lactic acidosis. 2. Gram-negative sepsis. 3. Urinary tract infection with sepsis. 4. Encephalopathy. 5. Pneumonia, possible aspiration. 6. Diabetes. 7. Hypertension. 8. Renal insufficiency. RECOMMENDATIONS: Change antibiotics to Zosyn and Zyvox. Supportive care. We will follow the cultures. Continue gentle hydration. Need ultrasound of the kidney to rule out obstruction and will continue to follow. Thank you, very much, Dr. Judd for giving me opportunity to participate in this patient's care. ADRIANA/CLAIRE DR: Judith TID: [id number]
[2021-08-06] MEDS: LACTOBACILLUS RHAMNOSUS GG 1 CAPSULE. PO SCH (20:30)
[2021-08-06 23:49] VITALS: BP 112/41
[2021-08-07] MEDS ORDERED: DEXTROSE 50% 25 GM / 50ML DISP.SYRIN. IV ONE (00:30)
[2021-08-07 03:00] VITALS: BP 111/62
[2021-08-07] MEDS: PIPERACILLIN/TAZOBACTAM 2.25 GM in IV NORMAL SALINE 50ML 50 ML IV SCH ×3 (06:03→17:58)
[2021-08-07 07:00] VITALS: BP 123/63
[2021-08-07] MEDS: INSULIN LISPRO 300 UNITS/3 ML VIAL. SQ SCH ×3 (08:00→17:00)
--- NOTE | 2021-08-07 08:00 | PDOC ---
Infectious Disease Note Subjective Subjective Patient is a little bit better though still confused ROS ROS No nausea vomiting diarrhea chest pain shortness of breath Vital Sign Vital Signs Vital Signs Date Time Temp Pulse Resp B/P (MAP) Pulse Ox O2 Delivery O2 Flow Rate FiO2 08/07/21 03:00 97.8 83 17 111/62 (78) 93 Nasal Cannula 6.0 97.8 Physical Exam PHYSICAL EXAM GENERAL: On examination, alert, but not oriented female who is able to answer simple questions, not in distress. VITAL SIGNS: Stable HEENT: Both pupils are round and reacting. No conjunctival lesion, no lesion in the mouth. NECK: Supple, no JVP, no lymphadenopathy. LUNGS: Clear. HEART: S1, S2 regular. ABDOMEN: Soft, nontender, no organomegaly. EXTREMITIES: No edema or cyanosis. SKIN: Unremarkable except right hip has a superficial stage 2 wound. NEUROLOGICAL: The patient does move all the extremities, but keeps repeating sentences and not able to remember or able to provide any history or information. Labs Lab Laboratory Tests Test 08/06/21 08:30 08/06/21 12:00 08/06/21 16:56 08/06/21 17:40 Lactic Acid Level 3.5 mmol/L (0.4-2.0) 4.5 mmol/L (0.4-2.0) 2.2 mmol/L (0.4-2.0) Glucose (Fingerstick) 152 mg/dL (70-99) Test 08/06/21 19:53 08/06/21 21:45 08/07/21 07:38 Glucose (Fingerstick) 124 mg/dL (70-99) 101 mg/dL (70-99) Lactic Acid Level 2.0 mmol/L (0.4-2.0) Micro Urine with E. coli Blood culture with gram-negative rods Objective Assessment IMPRESSION: 1. Sepsis with lactic acidosis. 2. Gram-negative sepsis. 3. Urinary tract infection with sepsis. 4. Encephalopathy. 5. Pneumonia, possible aspiration. 6. Diabetes. 7. Hypertension. 8. Renal insufficiency. Plan Plan of Care Continue antibiotics Supportive care PT OT JOSE G GORDILLO MD Aug 07, 2021 08:00
[2021-08-07 08:24] LABS: BASO % 0 % (0-3); EOS # 0.1 x10^3/uL (0.0-0.7); EOS % 0 % (0-3); HEMATOCRIT 38.4 % (36.0-47.0); HEMOGLOBIN 12.5 g/dL (12.0-15.5); LYMPH % 4 % (24-48); MEAN CORPUSCULAR HEMOGLOBIN 27 pg (25-35); MEAN CORPUSCULAR HGB CONC 33 g/dL (31-37); MEAN CORPUSCULAR VOLUME 82 fL (79-100); MONO # 0.9 x10^3/uL (0.0-1.1); MONO % 3 % (0-9); NEUT # 23.7 x10^3/uL (1.8-7.7); NEUT % 92 % (31-73); PLATELET COUNT 69 x10^3/uL (140-400); RED BLOOD COUNT 4.69 x10^6/uL (3.50-5.40); RED CELL DISTRIBUTION WIDTH 15.9 % (11.5-14.5); WHITE BLOOD COUNT 25.7 x10^3/uL (4.0-11.0)
[2021-08-07 08:42] LABS: CALCIUM 8.3 mg/dL (8.5-10.1); CREATININE 3.4 mg/dL (0.6-1.0); GFR 15.8; MAGNESIUM 1.8 mg/dL (1.8-2.4); POTASSIUM 4.5 mmol/L (3.5-5.1)
[2021-08-07] MEDS: LACTOBACILLUS RHAMNOSUS GG 1 CAPSULE. PO SCH ×2 (09:00→22:39)
[2021-08-07] MEDS: PANTOPRAZOLE 40 MG TABLET.DR. PO SCH (09:00)
[2021-08-07] MEDS: MULTIVITAMIN with MINERAL TABLET. PO SCH (09:00)
[2021-08-07] MEDS: ASCORBIC ACID 500 MG TABLET PO SCH (09:00)
[2021-08-07] MEDS: IV NORMAL SALINE 1000ML BAG 1,000 ML IV SCH ×2 (09:01→22:40)
[2021-08-07] MEDS: ENOXAPARIN 30 MG/0.3 ML SYRINGE. SQ SCH (09:04)
[2021-08-07 11:00] VITALS: BP 120/67
--- NOTE | 2021-08-07 12:09 | NUR ---
SW following. Discussed with RN, pt from home alone, 6L (does not use oxygen at home), renal diet. Therapy recommending SNF. Pt still very confused. CHEL spoke with pt's daughter, Maria Esther (ph: [phone]), this confusion is not normal for pt, but she does have a UTI so hoping it clears with the abx. Per Maria Esther, pt's home is not safe to return to from the hospital due to the hoarding. Pt would not usually let Maria Esther very far into the home when she would visit, but Maria Esther has been able to get a good look whilst pt is admitted. Maria Esther plans on tidying the home up and getting it safer for pt to return after rehab. Maria Esther nor her sister have DPOA paperwork for their mother, so this could potentially be addressed if pt's confusion clears enough prior to leaving the hospital. CHEL provided [facility] [employer] contact info to Maria Esther for a free consultation. Will readdress SNF placement on Tuesday after pt is more clear and oxygen requirements decrease. Maria Esther plans on speaking with her sister about placement options. CHEL will continue to follow.
--- NOTE | 2021-08-07 12:18 | PDOC ---
[facility] PROGRESS NOTE Date of Service DOS: DATE: 08/07/21 TIME: 12:14 Chief Complaint Chief Complaint Sepsis Bilateral atypical pneumonia, possible gram-negative organism Acute UTI Acute infectious and metabolic encephalopathy Lactic acidosis azotemia Chronic kidney disease WES due to vasomotor nephropathy Hyperglycemia uncontrolled Elevated BNP History of hypertension History of depression anxiety History of diabetes mellitus History of GERD History of Present Illness History of Present Illness 08/07/21 Patient seen and examined Reviewed chart Discussed with RN Patient urine culture grew E. coli. IV abx switched to piperacillin/tazobactam and linezolid per ID. Patient is more alert and responsive today but still pleasantly confused. Vitals/I&O Vitals/I&O: Vital Signs Date Time Temp Pulse Resp B/P (MAP) Pulse Ox O2 Delivery O2 Flow Rate FiO2 08/07/21 07:00 97.5 77 16 123/63 (83) 94 Nasal Cannula 3.0 97.5 I & O 08/06/21 08/06/21 08/07/21 15:00 23:00 07:00 Intake Total 120 ml 400 ml 120 ml Output Total 450 ml Balance 120 ml -50 ml 120 ml Physical Exam Physical Exam: GENERAL: On examination, alert, but not oriented female who is able to answer simple questions, not in distress. VITAL SIGNS: Stable HEENT: Both pupils are round and reacting. No conjunctival lesion, no lesion in the mouth. NECK: Supple, no JVP, no lymphadenopathy. LUNGS: Clear. HEART: S1, S2 regular. ABDOMEN: Soft, nontender, no organomegaly. EXTREMITIES: No edema or cyanosis. SKIN: Unremarkable except right hip has a superficial stage 2 wound. NEUROLOGICAL: The patient does move all the extremities, but keeps repeating sentences and not able to remember or able to provide any history or information. General: Alert, Cooperative, No acute distress, Other (pleasantly confused) Heart: Regular rate Lungs: Clear Extremities: No edema Skin: No rashes Labs Labs: Laboratory Tests Test 08/06/21 16:56 08/06/21 17:40 08/06/21 19:53 08/06/21 21:45 Glucose (Fingerstick) 152 mg/dL (70-99) 124 mg/dL (70-99) Lactic Acid Level 2.2 mmol/L (0.4-2.0) 2.0 mmol/L (0.4-2.0) Test 08/07/21 07:35 08/07/21 07:38 08/07/21 11:35 White Blood Count 25.7 x10^3/uL (4.0-11.0) Red Blood Count 4.69 x10^6/uL (3.50-5.40) Hemoglobin 12.5 g/dL (12.0-15.5) Hematocrit 38.4 % (36.0-47.0) Mean Corpuscular Volume 82 fL (79-100) Mean Corpuscular Hemoglobin 27 pg (25-35) Mean Corpuscular Hemoglobin Concent 33 g/dL (31-37) Red Cell Distribution Width 15.9 % (11.5-14.5) Platelet Count 69 x10^3/uL (140-400) Neutrophils (%) (Auto) 92 % (31-73) Lymphocytes (%) (Auto) 4 % (24-48) Monocytes (%) (Auto) 3 % (0-9) Eosinophils (%) (Auto) 0 % (0-3) Basophils (%) (Auto) 0 % (0-3) Neutrophils # (Auto) 23.7 x10^3/uL (1.8-7.7) Lymphocytes # (Auto) 1.0 x10^3/uL (1.0-4.8) Monocytes # (Auto) 0.9 x10^3/uL (0.0-1.1) Eosinophils # (Auto) 0.1 x10^3/uL (0.0-0.7) Basophils # (Auto) 0.0 x10^3/uL (0.0-0.2) Sodium Level 143 mmol/L (136-145) Potassium Level 4.5 mmol/L (3.5-5.1) Chloride Level 108 mmol/L (98-107) Carbon Dioxide Level 22 mmol/L (21-32) Anion Gap 13 (6-14) Blood Urea Nitrogen 54 mg/dL (7-20) Creatinine 3.4 mg/dL (0.6-1.0) Estimated GFR (Cockcroft-Gault) 15.8 Glucose Level 95 mg/dL (70-99) Calcium Level 8.3 mg/dL (8.5-10.1) Magnesium Level 1.8 mg/dL (1.8-2.4) Glucose (Fingerstick) 101 mg/dL (70-99) 129 mg/dL (70-99) Assessment and Plan Assessmemt and Plan Problems Medical Problems: (1) Dehydration Status: Acute (2) Hypomagnesemia Status: Acute (3) Renal failure Status: Acute (4) Sepsis Status: Acute (5) UTI (urinary tract infection) Status: Acute Sepsis Bilateral atypical pneumonia, possible gram-negative organism Acute UTI Acute infectious and metabolic encephalopathy Lactic acidosis WES due to vasomotor nephropathy azotemia Chronic kidney disease Hyperglycemia uncontrolled Elevated BNP History of hypertension History of depression anxiety History of diabetes mellitus History of GERD Plan: Continue piperacillin/tazobactam and linezolid per ID Appreciate subspecialist input Home meds Trend labs Supplemental O2 as needed Encourage PO intake DVT prophylaxis Full code Comment Review of Relevant I have reviewed the following items crys (where applicable) has been applied. Medications: Current Medications Medications (Trade) Dose Ordered Sig/Kenia Route PRN Reason Start Time Stop Time Status Last Admin Dose Admin Sodium Chloride 1,000 ml @ 1,000 mls/hr 1X ONCE IV 08/06/21 13:15 08/06/21 14:14 DC 08/06/21 13:15 Lactobacillus Rhamnosus (Culturelle) 1 cap BID PO 08/06/21 21:00 08/07/21 09:00 Justifications for Admission Other Justification Altered mental status and UTI, sepsis KAMRYN URIAS III DO Aug 07, 2021 12:18
[2021-08-07 15:00] VITALS: BP 117/42
[2021-08-07 19:00] VITALS: BP 107/40
[2021-08-07 23:00] VITALS: BP 122/56
[2021-08-08] MEDS: PIPERACILLIN/TAZOBACTAM 2.25 GM in IV NORMAL SALINE 50ML 50 ML IV SCH ×3 (00:39→12:43)
[2021-08-08 03:00] VITALS: BP 103/55
[2021-08-08 07:00] VITALS: BP 134/74
[2021-08-08] MEDS: INSULIN LISPRO 300 UNITS/3 ML VIAL. SQ SCH ×3 (08:00→17:00)
[2021-08-08 08:02] LABS: BASO % 0 % (0-3); EOS # 0.3 x10^3/uL (0.0-0.7); EOS % 1 % (0-3); HEMATOCRIT 35.4 % (36.0-47.0); HEMOGLOBIN 11.6 g/dL (12.0-15.5); LYMPH % 5 % (24-48); MEAN CORPUSCULAR HEMOGLOBIN 26 pg (25-35); MEAN CORPUSCULAR HGB CONC 33 g/dL (31-37); MEAN CORPUSCULAR VOLUME 81 fL (79-100); MONO # 1.1 x10^3/uL (0.0-1.1); MONO % 6 % (0-9); NEUT # 17.8 x10^3/uL (1.8-7.7); NEUT % 88 % (31-73); PLATELET COUNT 59 x10^3/uL (140-400); RED BLOOD COUNT 4.37 x10^6/uL (3.50-5.40); RED CELL DISTRIBUTION WIDTH 15.3 % (11.5-14.5); WHITE BLOOD COUNT 20.3 x10^3/uL (4.0-11.0)
[2021-08-08 08:31] LABS: CALCIUM 7.8 mg/dL (8.5-10.1); CREATININE 3.1 mg/dL (0.6-1.0); GFR 17.5; MAGNESIUM 1.9 mg/dL (1.8-2.4); POTASSIUM 3.6 mmol/L (3.5-5.1)
[2021-08-08] MEDS: ENOXAPARIN 30 MG/0.3 ML SYRINGE. SQ SCH (10:03)
[2021-08-08] MEDS: ASCORBIC ACID 500 MG TABLET PO SCH (10:03)
[2021-08-08] MEDS: MULTIVITAMIN with MINERAL TABLET. PO SCH (10:03)
[2021-08-08] MEDS: PANTOPRAZOLE 40 MG TABLET.DR. PO SCH (10:05)
[2021-08-08] MEDS: LACTOBACILLUS RHAMNOSUS GG 1 CAPSULE. PO SCH ×2 (10:05→23:04)
--- NOTE | 2021-08-08 10:41 | PDOC ---
[facility] [facility] PROGRESS NOTE Date of Service DOS: DATE: 08/08/21 TIME: 10:39 Chief Complaint Chief Complaint Sepsis Bilateral atypical pneumonia, possible gram-negative organism Acute UTI Acute infectious and metabolic encephalopathy Lactic acidosis azotemia Chronic kidney disease WES due to vasomotor nephropathy Hyperglycemia uncontrolled Elevated BNP History of hypertension History of depression anxiety History of diabetes mellitus History of GERD History of Present Illness History of Present Illness 08/08/2012 Patient seen and examined Discussed with RN Chart reviewed She is resting with no apparent distress She ate very little of her breakfast (she has eggs and toast) Has Zyvox and Zosyn hanging 08/07/21 Patient seen and examined Reviewed chart Discussed with RN Patient urine culture grew E. coli. IV abx switched to piperacillin/tazobactam and linezolid per ID. Patient is more alert and responsive today but still pleasantly confused. Vitals/I&O Vitals/I&O: Vital Signs Date Time Temp Pulse Resp B/P (MAP) Pulse Ox O2 Delivery O2 Flow Rate FiO2 08/08/21 07:00 97.7 66 18 134/74 (94) 96 Nasal Cannula 3.0 97.7 I & O 08/07/21 08/07/21 08/08/21 15:00 23:00 07:00 Intake Total 480 ml 1250 ml Output Total 600 ml Balance 480 ml 650 ml Physical Exam Physical Exam: GENERAL: On examination, alert, but not oriented female who is able to answer simple questions, not in distress. VITAL SIGNS: Stable HEENT: Both pupils are round and reacting. No conjunctival lesion, no lesion in the mouth. NECK: Supple, no JVP, no lymphadenopathy. LUNGS: Clear. HEART: S1, S2 regular. ABDOMEN: Soft, nontender, no organomegaly. EXTREMITIES: No edema or cyanosis. SKIN: Unremarkable except right hip has a superficial stage 2 wound. NEUROLOGICAL: The patient does move all the extremities, but keeps repeating sentences and not able to remember or able to provide any history or information. General: No acute distress, Other (pleasantly confused) Heart: Regular rate Lungs: Clear Extremities: No edema Skin: No rashes Labs Labs: Laboratory Tests Test 08/07/21 11:35 08/07/21 16:27 08/07/21 20:10 08/08/21 07:30 Glucose (Fingerstick) 129 mg/dL (70-99) 129 mg/dL (70-99) 97 mg/dL (70-99) White Blood Count 20.3 x10^3/uL (4.0-11.0) Red Blood Count 4.37 x10^6/uL (3.50-5.40) Hemoglobin 11.6 g/dL (12.0-15.5) Hematocrit 35.4 % (36.0-47.0) Mean Corpuscular Volume 81 fL (79-100) Mean Corpuscular Hemoglobin 26 pg (25-35) Mean Corpuscular Hemoglobin Concent 33 g/dL (31-37) Red Cell Distribution Width 15.3 % (11.5-14.5) Platelet Count 59 x10^3/uL (140-400) Neutrophils (%) (Auto) 88 % (31-73) Lymphocytes (%) (Auto) 5 % (24-48) Monocytes (%) (Auto) 6 % (0-9) Eosinophils (%) (Auto) 1 % (0-3) Basophils (%) (Auto) 0 % (0-3) Neutrophils # (Auto) 17.8 x10^3/uL (1.8-7.7) Lymphocytes # (Auto) 1.0 x10^3/uL (1.0-4.8) Monocytes # (Auto) 1.1 x10^3/uL (0.0-1.1) Eosinophils # (Auto) 0.3 x10^3/uL (0.0-0.7) Basophils # (Auto) 0.0 x10^3/uL (0.0-0.2) Sodium Level 139 mmol/L (136-145) Potassium Level 3.6 mmol/L (3.5-5.1) Chloride Level 107 mmol/L (98-107) Carbon Dioxide Level 18 mmol/L (21-32) Anion Gap 14 (6-14) Blood Urea Nitrogen 54 mg/dL (7-20) Creatinine 3.1 mg/dL (0.6-1.0) Estimated GFR (Cockcroft-Gault) 17.5 Glucose Level 117 mg/dL (70-99) Calcium Level 7.8 mg/dL (8.5-10.1) Magnesium Level 1.9 mg/dL (1.8-2.4) Test 08/08/21 07:39 Glucose (Fingerstick) 121 mg/dL (70-99) Assessment and Plan Assessmemt and Plan Problems Medical Problems: (1) Dehydration Status: Acute (2) Hypomagnesemia Status: Acute (3) Renal failure Status: Acute (4) Sepsis Status: Acute (5) UTI (urinary tract infection) Status: Acute Sepsis Bilateral atypical pneumonia, possible gram-negative organism Acute UTI Acute infectious and metabolic encephalopathy Lactic acidosis WES due to vasomotor nephropathy azotemia Chronic kidney disease Hyperglycemia uncontrolled Elevated BNP History of hypertension History of depression anxiety History of diabetes mellitus History of GERD Plan: Continue piperacillin/tazobactam and linezolid per ID Appreciate subspecialist input Home meds Trend labs Encourage p.o. intake Supplemental O2 as needed DVT prophylaxis Full code Comment Review of Relevant I have reviewed the following items crys (where applicable) has been applied. Justifications for Admission Other Justification Altered mental status and UTI, sepsis KAMRYN URIAS III DO Aug 08, 2021 10:41
--- NOTE | 2021-08-08 10:53 | PDOC ---
Infectious Disease Note Subjective Subjective Patient is much better able to communicate much better was able to sit with support ROS ROS No nausea vomiting diarrhea or fever Vital Sign Vital Signs Vital Signs Date Time Temp Pulse Resp B/P (MAP) Pulse Ox O2 Delivery O2 Flow Rate FiO2 08/08/21 07:00 97.7 66 18 134/74 (94) 96 Nasal Cannula 3.0 97.7 Physical Exam PHYSICAL EXAM GENERAL: On examination, alert, but not oriented female who is able to answer simple questions, not in distress. VITAL SIGNS: Stable HEENT: Both pupils are round and reacting. No conjunctival lesion, no lesion in the mouth. NECK: Supple, no JVP, no lymphadenopathy. LUNGS: Clear. HEART: S1, S2 regular. ABDOMEN: Soft, nontender, no organomegaly. EXTREMITIES: No edema or cyanosis. SKIN: Unremarkable except right hip has a superficial stage 2 wound. NEUROLOGICAL: The patient does move all the extremities, but keeps repeating sentences and not able to remember or able to provide any history or information. Labs Lab Laboratory Tests Test 08/07/21 11:35 08/07/21 16:27 08/07/21 20:10 08/08/21 07:30 Glucose (Fingerstick) 129 mg/dL (70-99) 129 mg/dL (70-99) 97 mg/dL (70-99) White Blood Count 20.3 x10^3/uL (4.0-11.0) Red Blood Count 4.37 x10^6/uL (3.50-5.40) Hemoglobin 11.6 g/dL (12.0-15.5) Hematocrit 35.4 % (36.0-47.0) Mean Corpuscular Volume 81 fL (79-100) Mean Corpuscular Hemoglobin 26 pg (25-35) Mean Corpuscular Hemoglobin Concent 33 g/dL (31-37) Red Cell Distribution Width 15.3 % (11.5-14.5) Platelet Count 59 x10^3/uL (140-400) Neutrophils (%) (Auto) 88 % (31-73) Lymphocytes (%) (Auto) 5 % (24-48) Monocytes (%) (Auto) 6 % (0-9) Eosinophils (%) (Auto) 1 % (0-3) Basophils (%) (Auto) 0 % (0-3) Neutrophils # (Auto) 17.8 x10^3/uL (1.8-7.7) Lymphocytes # (Auto) 1.0 x10^3/uL (1.0-4.8) Monocytes # (Auto) 1.1 x10^3/uL (0.0-1.1) Eosinophils # (Auto) 0.3 x10^3/uL (0.0-0.7) Basophils # (Auto) 0.0 x10^3/uL (0.0-0.2) Sodium Level 139 mmol/L (136-145) Potassium Level 3.6 mmol/L (3.5-5.1) Chloride Level 107 mmol/L (98-107) Carbon Dioxide Level 18 mmol/L (21-32) Anion Gap 14 (6-14) Blood Urea Nitrogen 54 mg/dL (7-20) Creatinine 3.1 mg/dL (0.6-1.0) Estimated GFR (Cockcroft-Gault) 17.5 Glucose Level 117 mg/dL (70-99) Calcium Level 7.8 mg/dL (8.5-10.1) Magnesium Level 1.9 mg/dL (1.8-2.4) Test 08/08/21 07:39 Glucose (Fingerstick) 121 mg/dL (70-99) Micro Urine with E. coli Blood culture E. coli Objective Assessment IMPRESSION: 1. Sepsis with lactic acidosis. 2. Gram-negative sepsis. E. coli 3. Urinary tract infection with sepsis. 4. Encephalopathy. 5. Pneumonia, possible aspiration. 6. Diabetes. 7. Hypertension. 8. Renal insufficiency. Plan Plan of Care Continue antibiotics//changed to p.o. antibiotics soon for possible discharge to intermediate facility Supportive care PT OT JOSE G GORDILLO MD Aug 08, 2021 10:53
[2021-08-08 11:00] VITALS: BP 104/54
[2021-08-08] MEDS: IV NORMAL SALINE 1000ML BAG 1,000 ML IV SCH (12:47)
[2021-08-08 15:00] VITALS: BP 110/53
[2021-08-08] MEDS: cefTRIAXone IV Push 2 GM VIAL. IVP SCH (17:31)
[2021-08-08 19:00] VITALS: BP 131/68
--- NOTE | 2021-08-08 19:19 | CONS ---
DATE OF CONSULTATION: 08/08/2021 REQUESTING PHYSICIAN: Hospitalist. REASON FOR CONSULTATION: Renal failure. HISTORY OF PRESENT ILLNESS: This is a 80-year-old female who was found down by her daughter. She is now found to have Gram-negative sepsis. We are asked to evaluate renal dysfunction in the setting of the above. The patient has history of hypertension, DVT and pulmonary embolus as well as diabetes mellitus. It is unknown as to whether there is history of chronic kidney disease. PAST MEDICAL HISTORY: Hypertension, hyperlipidemia, DVT, pulmonary embolus, GE reflux disease, breast lumpectomy, ankle surgery, rotator cuff repair, skin cancer, and psychiatric issues. ALLERGIES: None. MEDICATIONS: Reviewed per medication list. FAMILY HISTORY: Noncontributory. SOCIAL HISTORY: The patient resides independently. REVIEW OF SYSTEMS: Weakness, fatigue and she is confused, so otherwise, remainder of the review of systems is not obtainable. PHYSICAL EXAMINATION: GENERAL APPEARANCE: The patient is drowsy, awakens, looks around. HEENT: Sallow complex. NECK: No increased JVD. LUNGS: Clear. CARDIAC: Without S3 or rub. ABDOMEN: Obese. Bowel sounds are present, nontender. EXTREMITIES: Without edema. NEUROPSYCHIATRIC: Confused. LABORATORY DATA: Sodium 139, potassium 3.6, chloride 107, CO2 of 18, BUN 54, creatinine 3.1, GFR 17.5. This is improved from a value of creatinine 4 and GFR 13.1 on presentation. White count 20.3, hemoglobin 11.6, hematocrit 35.4, platelets 59. IMPRESSION: 1. Acute versus chronic renal failure -- likely primarily acute in the setting of sepsis. 2. Urinary tract infection with sepsis. 3. Encephalopathy related to the above. 4. Diabetes mellitus. 5. Hypertension. RECOMMENDATIONS: 1. Continue antibiotics as dictated by the infectious disease service. 2. Fluid balance. 3. Renal ultrasound is pending. We will follow. EFFIE DR: Alina TID: [id number]
[2021-08-08 23:00] VITALS: BP 125/54
[2021-08-09] MEDS: IV NORMAL SALINE 1000ML BAG 1,000 ML IV SCH ×2 (00:59→13:35)
[2021-08-09 03:00] VITALS: BP 118/55
[2021-08-09 07:00] VITALS: BP 125/70
[2021-08-09 08:00] LABS: ALBUMIN 1.6 g/dL (3.4-5.0); ALBUMIN/GLOBULIN RATIO 0.4 (1.0-1.7); CALCIUM 7.8 mg/dL (8.5-10.1); CREATININE 2.7 mg/dL (0.6-1.0); GFR 20.6; POTASSIUM 3.7 mmol/L (3.5-5.1); TOTAL BILIRUBIN 0.9 mg/dL (0.2-1.0); TOTAL PROTEIN 5.4 g/dL (6.4-8.2)
[2021-08-09] MEDS: INSULIN LISPRO 300 UNITS/3 ML VIAL. SQ SCH ×3 (08:00→17:22)
[2021-08-09] MEDS: PANTOPRAZOLE 40 MG TABLET.DR. PO SCH (08:29)
[2021-08-09] MEDS: MULTIVITAMIN with MINERAL TABLET. PO SCH (08:29)
[2021-08-09] MEDS: LACTOBACILLUS RHAMNOSUS GG 1 CAPSULE. PO SCH ×2 (08:29→23:13)
[2021-08-09] MEDS: ASCORBIC ACID 500 MG TABLET PO SCH (08:29)
[2021-08-09] MEDS: ENOXAPARIN 30 MG/0.3 ML SYRINGE. SQ SCH (08:30)
[2021-08-09 11:00] VITALS: BP 130/65
--- NOTE | 2021-08-09 12:14 | PDOC ---
PROGRESS NOTES Date of Service DATE: 08/09/21 TIME: 12:12 Subjective Subjective SEEN IN FOLLOW UP OF ARF Objective Objective Vital Signs Date Time Temp Pulse Resp B/P (MAP) Pulse Ox O2 Delivery O2 Flow Rate FiO2 08/09/21 07:00 98.2 72 18 125/70 (88) 99 Nasal Cannula 3.0 98.2 Intake and Output 08/09/21 07:00 Intake Total 960 ml Output Total 1250 ml Balance -290 ml Intake Oral 960 ml Output Urine Total 1250 ml Physical Exam Heart: Regular rate, Normal S1, Normal S2, No murmurs, Gallops Extremities: No clubbing, No cyanosis, No edema, Normal pulses, No tenderness/swelling General: Alert, Oriented X3, Cooperative, No acute distress Lungs: Clear to auscultation, Normal air movement Psych/Mental Status: Mental status NL, Mood NL Diagnosis RENAL FAILURE: Acute (Acute tubular necrosis) Assessment Assessment Problems Medical Problems: (1) Dehydration Status: Acute (2) Hypomagnesemia Status: Acute (3) Renal failure Status: Acute (4) Sepsis Status: Acute (5) UTI (urinary tract infection) Status: Acute Plan Plan of Care HER RENAL FUNCTION IS IMPROVING. CONT IVF PER LAB. TAKING PO WELL Comment Review of Relevant I have reviewed the following items crys (where applicable) has been applied. Labs Laboratory Tests Test 08/07/21 16:27 08/07/21 20:10 08/08/21 07:30 08/08/21 07:39 Glucose (Fingerstick) 129 mg/dL (70-99) 97 mg/dL (70-99) 121 mg/dL (70-99) White Blood Count 20.3 x10^3/uL (4.0-11.0) Red Blood Count 4.37 x10^6/uL (3.50-5.40) Hemoglobin 11.6 g/dL (12.0-15.5) Hematocrit 35.4 % (36.0-47.0) Mean Corpuscular Volume 81 fL (79-100) Mean Corpuscular Hemoglobin 26 pg (25-35) Mean Corpuscular Hemoglobin Concent 33 g/dL (31-37) Red Cell Distribution Width 15.3 % (11.5-14.5) Platelet Count 59 x10^3/uL (140-400) Neutrophils (%) (Auto) 88 % (31-73) Lymphocytes (%) (Auto) 5 % (24-48) Monocytes (%) (Auto) 6 % (0-9) Eosinophils (%) (Auto) 1 % (0-3) Basophils (%) (Auto) 0 % (0-3) Neutrophils # (Auto) 17.8 x10^3/uL (1.8-7.7) Lymphocytes # (Auto) 1.0 x10^3/uL (1.0-4.8) Monocytes # (Auto) 1.1 x10^3/uL (0.0-1.1) Eosinophils # (Auto) 0.3 x10^3/uL (0.0-0.7) Basophils # (Auto) 0.0 x10^3/uL (0.0-0.2) Sodium Level 139 mmol/L (136-145) Potassium Level 3.6 mmol/L (3.5-5.1) Chloride Level 107 mmol/L (98-107) Carbon Dioxide Level 18 mmol/L (21-32) Anion Gap 14 (6-14) Blood Urea Nitrogen 54 mg/dL (7-20) Creatinine 3.1 mg/dL (0.6-1.0) Estimated GFR (Cockcroft-Gault) 17.5 Glucose Level 117 mg/dL (70-99) Calcium Level 7.8 mg/dL (8.5-10.1) Magnesium Level 1.9 mg/dL (1.8-2.4) Test 08/08/21 11:23 08/08/21 16:31 08/08/21 21:01 08/09/21 07:15 Glucose (Fingerstick) 158 mg/dL (70-99) 125 mg/dL (70-99) 127 mg/dL (70-99) Sodium Level 141 mmol/L (136-145) Potassium Level 3.7 mmol/L (3.5-5.1) Chloride Level 110 mmol/L (98-107) Carbon Dioxide Level 20 mmol/L (21-32) Anion Gap 11 (6-14) Blood Urea Nitrogen 54 mg/dL (7-20) Creatinine 2.7 mg/dL (0.6-1.0) Estimated GFR (Cockcroft-Gault) 20.6 BUN/Creatinine Ratio 20 (6-20) Glucose Level 127 mg/dL (70-99) Calcium Level 7.8 mg/dL (8.5-10.1) Total Bilirubin 0.9 mg/dL (0.2-1.0) Aspartate Amino Transf (AST/SGOT) 91 U/L (15-37) Alanine Aminotransferase (ALT/SGPT) 88 U/L (14-59) Alkaline Phosphatase 240 U/L (46-116) Total Protein 5.4 g/dL (6.4-8.2) Albumin 1.6 g/dL (3.4-5.0) Albumin/Globulin Ratio 0.4 (1.0-1.7) Test 08/09/21 07:55 08/09/21 11:26 Glucose (Fingerstick) 121 mg/dL (70-99) 162 mg/dL (70-99) Laboratory Tests Test 08/08/21 16:31 08/08/21 21:01 08/09/21 07:15 08/09/21 07:55 Glucose (Fingerstick) 125 mg/dL (70-99) 127 mg/dL (70-99) 121 mg/dL (70-99) Sodium Level 141 mmol/L (136-145) Potassium Level 3.7 mmol/L (3.5-5.1) Chloride Level 110 mmol/L (98-107) Carbon Dioxide Level 20 mmol/L (21-32) Anion Gap 11 (6-14) Blood Urea Nitrogen 54 mg/dL (7-20) Creatinine 2.7 mg/dL (0.6-1.0) Estimated GFR (Cockcroft-Gault) 20.6 BUN/Creatinine Ratio 20 (6-20) Glucose Level 127 mg/dL (70-99) Calcium Level 7.8 mg/dL (8.5-10.1) Total Bilirubin 0.9 mg/dL (0.2-1.0) Aspartate Amino Transf (AST/SGOT) 91 U/L (15-37) Alanine Aminotransferase (ALT/SGPT) 88 U/L (14-59) Alkaline Phosphatase 240 U/L (46-116) Total Protein 5.4 g/dL (6.4-8.2) Albumin 1.6 g/dL (3.4-5.0) Albumin/Globulin Ratio 0.4 (1.0-1.7) Test 08/09/21 11:26 Glucose (Fingerstick) 162 mg/dL (70-99) Microbiology 08/05/21 Blood Culture - Final, Complete 08/05/21 Urine Culture - Final, Complete 08/05/21 Antimicrobic Susceptibility - Final, Complete Medications Current Medications Sodium Chloride 1,000 ml @ 1,000 mls/hr 1X ONCE IV Last administered on 08/05/21at 17:24; Start 08/05/21 at 16:30; Stop 08/05/21 at 17:29; Status DC Ceftriaxone Sodium (Rocephin) 1 gm 1X ONCE IVP Last administered on 08/05/21at 17:42; Start 08/05/21 at 17:45; Stop 08/05/21 at 17:46; Status DC Sodium Chloride 1,000 ml @ 1,000 mls/hr 1X ONCE IV Last administered on 08/05/21at 17:25; Start 08/05/21 at 17:15; Stop 08/05/21 at 18:14; Status DC Magnesium Sulfate 50 ml @ 25 mls/hr 1X ONCE IV Last administered on 08/06/21at 00:47; Start 08/05/21 at 17:45; Stop 08/05/21 at 19:44; Status DC Ondansetron HCl (Zofran) 4 mg PRN Q8HRS PRN IVP NAUSEA/VOMITING; Start 08/05/21 at 17:45; Stop 08/05/21 at 18:44; Status DC Sodium Chloride 1,000 ml @ 100 mls/hr Q10H IV ; Start 08/05/21 at 17:45; Stop 08/06/21 at 12:27; Status DC Sodium Chloride 1,000 ml @ 1,000 mls/hr 1X ONCE IV Last administered on 08/05/21at 19:00; Start 08/05/21 at 18:00; Stop 08/05/21 at 18:59; Status DC Sennosides (Senna) 17.2 mg PRN BID PRN PO CONSTIPATION; Start 08/05/21 at 18:45 Docusate Sodium (Colace) 100 mg PRN DAILY PRN PO HARD STOOLS; Start 08/05/21 at 18:45 Ondansetron HCl (Zofran) 4 mg PRN Q6HRS PRN IVP NAUSEA/VOMITING; Start at 18:45 Insulin Human Lispro (HumaLOG) 0-7 UNITS TIDWMEALS SQ Last administered on 08/09/21at 12:04; Start 08/06/21 at 08:00 Dextrose (Dextrose 50%-Water Syringe) 12.5 gm PRN Q15MIN PRN IV SEE COMMENTS; Start 08/05/21 at 18:45 Sodium Chloride 1,000 ml @ 75 mls/hr [id number] IV Last administered on 08/09/21at 00:59; Start 08/05/21 at 18:45 Acetaminophen (Tylenol) 650 mg PRN Q4HRS PRN PO TEMP OVER 100.4F OR MILD PAIN; Start 08/05/21 at 18:45 Lorazepam (Ativan) 0.5 mg PRN Q6HRS PRN PO ANXIETY / AGITATION; Start 08/05/21 at 18:45 Lorazepam (Ativan Inj) 0.25 mg PRN Q4HRS PRN IV ANXIETY / AGITATION; Start 08/05/21 at 18:45 Enoxaparin Sodium (Lovenox 30mg Syringe) 30 mg DAILY SQ Last administered on 08/09/21at 08:30; Start 08/06/21 at 09:00 Pantoprazole Sodium (Protonix) 40 mg DAILYAC PO Last administered on 08/09/21at 08:29; Start 08/06/21 at 07:30 Ceftriaxone Sodium (Rocephin) 1 gm Q24H IVP ; Start 08/06/21 at 17:00; Stop 08/06/21 at 11:39; Status DC Prochlorperazine Edisylate (Compazine) 10 mg PRN Q6HRS PRN IV NAUSEA/VOMITING, 2ND CHOICE Last administered on 08/08/21at 12:46; Start 08/05/21 at 18:45 Zolpidem Tartrate (Ambien) 2.5 mg PRN QHS PRN PO INSOMNIA; Start 08/05/21 at 18:45 Doxycycline Hyclate 100 mg/ Dextrose 100 ml @ 50 mls/hr BID IV Last administered on 08/06/21at 10:49; Start 08/05/21 at 20:00; Stop 08/06/21 at 11:39; Status DC Ascorbic Acid (Vitamin C) 500 mg DAILY PO Last administered on 08/09/21at 08:29; Start 08/06/21 at 11:00 Multivitamins (Thera M Plus) 1 tab DAILY PO Last administered on 08/09/21at 08:29; Start 08/06/21 at 11:00 Piperacillin Sod/ Tazobactam Sod 2.25 gm/Sodium Chloride 50 ml @ 100 mls/hr Q6HRS IV Last administered on 08/08/21at 12:43; Start 08/06/21 at 12:00; Stop 08/08/21 at 12:54; Status DC Linezolid/Dextrose 300 ml @ 300 mls/hr Q12HR IV Last administered on 08/08/21at 10:08; Start 08/06/21 at 12:00; Stop 08/08/21 at 12:54; Status DC Sodium Chloride 1,000 ml @ 1,000 mls/hr 1X ONCE IV Last administered on 08/06/21at 13:15; Start 08/06/21 at 13:15; Stop 08/06/21 at 14:14; Status DC Lactobacillus Rhamnosus (Culturelle) 1 cap BID PO Last administered on 07/21 10/09at 08:29; Start 08/06/21 at 21:00 Dextrose (Dextrose 50%-Water Syringe) 25 gm STK-MED ONCE IV ; Start 08/07/21 at 00:30; Stop 08/07/21 at 08:32; Status DC Ceftriaxone Sodium (Rocephin) 2 gm Q24H IVP Last administered on 08/08/21at 17:31; Start 08/08/21 at 18:00 Active Scripts Active Atorvastatin Calcium 10 Mg Tablet 10 Mg PO QHS 30 Days Amlodipine Besylate 10 Mg Tablet 10 Mg PO DAILY 30 Days Reported D3-50 (Cholecalciferol (Vitamin D3)) 50,000 Unit Capsule 1 Cap PO WEEKLY 28 Days Furosemide 20 Mg Tablet 2 Tab PO DAILY Famotidine 40 Mg Tablet 40 Mg PO DAILY Cetirizine Hcl 10 Mg Tablet 1 Tab PO DAILY Metformin Hcl 500 Mg Tablet 500 Mg PO BIDWMEALS Losartan-Hctz 100-25 Mg Tab (Losartan/Hydrochlorothiazide) 1 Each Tablet 1 Tab PO DAILY Sertraline Hcl 100 Mg Tablet 100 Mg PO PRN QHS PRN Vitals/I & O Vital Sign - Last 24 Hours 08/08/21 08/08/21 08/08/21 08/08/21 15:00 19:00 23:00 23:00 Temp 97.8 98.2 98.6 97.8 98.2 98.6 Pulse 62 63 70 Resp 18 18 19 B/P (MAP) 110/53 (72) 131/68 (89) 125/54 (77) Pulse Ox 97 98 91 O2 Delivery Nasal Cannula Nasal Cannula Nasal Cannula Nasal Cannula O2 Flow Rate 3.0 3.0 3.0 3.0 08/09/21 08/09/21 03:00 07:00 Temp 98.2 98.2 98.2 98.2 Pulse 68 72 Resp 20 18 B/P (MAP) 118/55 (76) 125/70 (88) Pulse Ox 98 99 O2 Delivery Nasal Cannula Nasal Cannula O2 Flow Rate 3.0 3.0 Intake and Output 0 08/08/21 08/08/21 08/09/21 15:00 23:00 07:00 Intake Total 480 ml 480 ml Output Total 850 ml 400 ml Balance 480 ml -370 ml -400 ml Justifications for Admission Other Justification Altered mental status and UTI, sepsis Nutrition Consultation Dietary Evaluation: Recommendations by RD: Dietary education by RD Comments: continue Renal/ ada diet mvi , vit c per wound protocal Expected Outcomes/Goals: improved po intake Malnutrition Findings: Body Fat Depletion (Non Severe: Mild Depletion Weight Status: Obese IKE JIMENEZ MD Aug 09, 2021 12:14
--- NOTE | 2021-08-09 12:47 | PDOC ---
[facility] PROGRESS NOTE Date of Service DOS: DATE: 08/09/21 TIME: 12:42 Chief Complaint Chief Complaint Sepsis Bilateral atypical pneumonia, possible gram-negative organism Acute UTI Acute infectious and metabolic encephalopathy Lactic acidosis azotemia Chronic kidney disease WES due to vasomotor nephropathy Hyperglycemia uncontrolled Elevated BNP History of hypertension History of depression anxiety History of diabetes mellitus History of GERD History of Present Illness History of Present Illness 08/09/2021 Patient seen and examined. Doing well and in NAD. Possible discharge soon, may need to be evaluated by PT/OT prior to discharge due to history of fall. With possible discharge to residential. Chart Reviewed Discussed with RN Starting Abx po per Infectious Disease Discharge disposition pending 08/08/2012 Patient seen and examined Discussed with RN Chart reviewed She is resting with no apparent distress She ate very little of her breakfast (she has eggs and toast) Has Zyvox and Zosyn hanging 08/07/21 Patient seen and examined Reviewed chart Discussed with RN Patient urine culture grew E. coli. IV abx switched to piperacillin/tazobactam and linezolid per ID. Patient is more alert and responsive today but still pleasantly confused. Vitals/I&O Vitals/I&O: Vital Signs Date Time Temp Pulse Resp B/P (MAP) Pulse Ox O2 Delivery O2 Flow Rate FiO2 08/09/21 11:00 98.0 63 18 130/65 (86) 96 Nasal Cannula 3.0 98.0 I & O 08/08/21 08/08/21 08/09/21 15:00 23:00 07:00 Intake Total 480 ml 480 ml Output Total 850 ml 400 ml Balance 480 ml -370 ml -400 ml Physical Exam Physical Exam: GENERAL: On examination, alert, but not oriented female who is able to answer simple questions, not in distress. VITAL SIGNS: Stable HEENT: Both pupils are round and reacting. No conjunctival lesion, no lesion in the mouth. NECK: Supple, no JVP, no lymphadenopathy. LUNGS: Clear. HEART: S1, S2 regular. ABDOMEN: Soft, nontender, no organomegaly. EXTREMITIES: No edema or cyanosis. SKIN: Unremarkable except right hip has a superficial stage 2 wound. NEUROLOGICAL: The patient does move all the extremities, but keeps repeating sentences and not able to remember or able to provide any history or information. General: Alert, Oriented X3, Cooperative, No acute distress Heart: Regular rate, Normal S1, Normal S2, No murmurs, Gallops Lungs: Clear Extremities: No clubbing, No cyanosis, No edema, Normal pulses, No tenderness/swelling Skin: No rashes Labs Labs: Laboratory Tests Test 08/08/21 16:31 08/08/21 21:01 08/09/21 07:15 08/09/21 07:55 Glucose (Fingerstick) 125 mg/dL (70-99) 127 mg/dL (70-99) 121 mg/dL (70-99) Sodium Level 141 mmol/L (136-145) Potassium Level 3.7 mmol/L (3.5-5.1) Chloride Level 110 mmol/L (98-107) Carbon Dioxide Level 20 mmol/L (21-32) Anion Gap 11 (6-14) Blood Urea Nitrogen 54 mg/dL (7-20) Creatinine 2.7 mg/dL (0.6-1.0) Estimated GFR (Cockcroft-Gault) 20.6 BUN/Creatinine Ratio 20 (6-20) Glucose Level 127 mg/dL (70-99) Calcium Level 7.8 mg/dL (8.5-10.1) Total Bilirubin 0.9 mg/dL (0.2-1.0) Aspartate Amino Transf (AST/SGOT) 91 U/L (15-37) Alanine Aminotransferase (ALT/SGPT) 88 U/L (14-59) Alkaline Phosphatase 240 U/L (46-116) Total Protein 5.4 g/dL (6.4-8.2) Albumin 1.6 g/dL (3.4-5.0) Albumin/Globulin Ratio 0.4 (1.0-1.7) Test 08/09/21 11:26 Glucose (Fingerstick) 162 mg/dL (70-99) Assessment and Plan Assessmemt and Plan Problems Medical Problems: (1) Dehydration Status: Acute (2) Hypomagnesemia Status: Acute (3) Renal failure Status: Acute (4) Sepsis Status: Acute (5) UTI (urinary tract infection) Status: Acute Sepsis Bilateral atypical pneumonia, possible gram-negative organism Acute UTI Acute infectious and metabolic encephalopathy Lactic acidosis WES due to vasomotor nephropathy azotemia Chronic kidney disease Hyperglycemia uncontrolled Elevated BNP History of hypertension History of depression anxiety History of diabetes mellitus History of GERD Plan: Start Abx PO per ID Appreciate subspecialist input Home meds Trend labs Encourage p.o. intake Supplemental O2 as needed DVT prophylaxis Full code Discharge disposition pending Comment Review of Relevant I have reviewed the following items crys (where applicable) has been applied. Medications: Current Medications Medications (Trade) Dose Ordered Sig/Kenia Route PRN Reason Start Time Stop Time Status Last Admin Dose Admin Ceftriaxone Sodium (Rocephin) 2 gm Q24H IVP 08/08/21 18:00 08/08/21 17:31 Justifications for Admission Other Justification Altered mental status and UTI, sepsis KAMRYN URIAS III DO Aug 09, 2021 12:47
[2021-08-09 15:00] VITALS: BP 117/46
[2021-08-09] MEDS: cefTRIAXone IV Push 2 GM VIAL. IVP SCH (17:15)
[2021-08-09 19:00] VITALS: BP 145/80
[2021-08-09 23:00] VITALS: BP 140/58
[2021-08-10] MEDS: IV NORMAL SALINE 1000ML BAG 1,000 ML IV SCH (02:55)
[2021-08-10 03:00] VITALS: BP 212/105
[2021-08-10 07:00] VITALS: BP 117/56
[2021-08-10] MEDS ORDERED: FUROSEMIDE 40 MG/4 ML VIAL. IVP ONE (07:00)
--- NOTE | 2021-08-10 07:29 | NUR ---
Patient had an episode of shortness of breath and c/o feeling cold and shivering. She also had noticeably increased generalized edema. BP-212/105 P-105 R-28 T-98.1 O2-90% with 3L. IVF were put on hold at this time. Dr. Agosto notified and order received for Lasix 40mg IVP X1. Will continue to monitor.
--- NOTE | 2021-08-10 07:39 | PDOC ---
Infectious Disease Note Subjective: Subjective Patient feels better Still continues to have weakness Complains of left knee pain which is chronic from arthritis Vital Signs: Vital Signs Vital Signs Date Time Temp Pulse Resp B/P (MAP) Pulse Ox O2 Delivery O2 Flow Rate FiO2 08/10/21 03:00 98.1 84 28 212/105 (140) 90 Nasal Cannula 3.0 98.1 Physical Exam: PHYSICAL EXAM GENERAL: Alert awake answers most of the questions appears comfortable though weak HEENT: Both pupils are round and reacting. No conjunctival lesion, no lesion in the mouth. NECK: Supple, no JVP, no lymphadenopathy. LUNGS: Clear. HEART: S1, S2 regular. ABDOMEN: Soft, nontender, no organomegaly. EXTREMITIES: No edema or cyanosis. Left knee no swelling noted SKIN: Unremarkable except right hip has a superficial stage 2 wound. NEUROLOGICAL: The patient does move all the extremities, generalized weakness Psych calm cooperative Medications: Inpatient Meds: Medications reviewed. Labs: Lab Laboratory Tests Test 08/09/21 07:55 08/09/21 11:26 08/09/21 17:08 08/09/21 20:13 Glucose (Fingerstick) 121 mg/dL (70-99) 162 mg/dL (70-99) 159 mg/dL (70-99) 125 mg/dL (70-99) Test 08/10/21 07:33 Glucose (Fingerstick) 122 mg/dL (70-99) Objective: Assessment: 1. Sepsis with lactic acidosis. 2. Gram-negative sepsis. E. coli 3. Urinary tract infection with sepsis. E. coli 4. Encephalopathy. 5. Pneumonia, possible aspiration. 6. Diabetes. 7. Hypertension. 8. Renal insufficiency. low plt Plan: Plan of Care cont rocephin thrombocytopenia etiology ? CT abdo and pelvis WO Supportive care PT OT LOLA GORDILLO MD Aug 10, 2021 07:39
[2021-08-10] MEDS: INSULIN LISPRO 300 UNITS/3 ML VIAL. SQ SCH ×3 (08:00→17:20)
[2021-08-10] MEDS: ASCORBIC ACID 500 MG TABLET PO SCH (08:32)
[2021-08-10] MEDS: PANTOPRAZOLE 40 MG TABLET.DR. PO SCH (08:32)
[2021-08-10] MEDS: MULTIVITAMIN with MINERAL TABLET. PO SCH (08:32)
[2021-08-10] MEDS: LACTOBACILLUS RHAMNOSUS GG 1 CAPSULE. PO SCH ×2 (08:32→21:29)
[2021-08-10] MEDS: ENOXAPARIN 30 MG/0.3 ML SYRINGE. SQ SCH (08:33)
--- NOTE | 2021-08-10 09:27 | RAD ---
CT of the chest, abdomen, and pelvis without contrast 08/10/2021 INDICATION: UTI, bacteremia. COMPARISON STUDY: CT of the chest March 21, 2018. Abdominal ultrasound March 21, 2018. Discussion: CT imaging of the chest, abdomen, and pelvis was performed without the administration of IV contrast. FINDINGS: Heart is mildly enlarged. Trace pericardial fluid is seen. No significant mediastinal adeno sandy is identified. No pneumothorax. No significant pleural effusion is seen. Mild patchy subpleural groundglass opacities are seen in the right upper lobe. Bibasilar atelectasis is seen. Bronchiectasi s appears to be present in the right lower lobe and to a lesser degree right middle lobe with associa gustavo volume loss. Differential considerations include atelectasis, aspiration, or pneumonia. The appea melchor is new since CT CTA of the chest from March 2018. There are 2 somewhat linear adjacent stones in the mid right ureter with associated mild hydronephros is. These stones measure 9 mm and 7 mm respectively. Multiple punctate nonobstructing stones are seen in the right kidney is well. There is a ill-defined area of hypodensity in the inferior pole of the right kidney measuring 2.7 cm in diameter. The appearance is nonspecific and could represent an atypi tico cyst, though solid lesion is difficult to exclude. There is a catheter within the bladder which subsequently completely decompressed. Grossly similar appearance of 2 left renal cyst. More inferior measures 4.5 cm in diameter more super ior measures 5.2 cm in diameter. There is a 5 mm nonobstructing stone in the inferior pole the left k idney. No hydronephrosis or obstructive uropathy is seen in the left. Left ureter is unremarkable in course and caliber. Liver and gallbladder demonstrate no acute abnormality. Adrenal glands, pancreas, and spleen are unre markable. Non-retrievable IVC filter noted to be in place. Distal colonic diverticulosis is noted w ithout evidence of acute diverticulitis. The appendix is unremarkable. No signal degenerative changes of the bilateral hips, as well as the thoracic and lumbar spine noted. No acute osseous abnormality is identified. IMPRESSION: 1. Patchy ground glass opacity in the right upper lobe. The appearance favors a mild acute inflammato ry infectious process. 2.Bronchiectasis with focal consolidation and volume loss in the right middle lobe and lower lobe. Di fferential considerations include pneumonia, and/or chronic aspiration. The appearance is new since C T angiography of the chest from March 2018. 3. 2 subcentimeter stones in the mid right ureter with mild right hydronephrosis 4. Subcentimeter nonobstructing renal calculi bilaterally 5. 2.7 cm ill-defined hypodense area in the inferior pole the right kidney. This may represent atypic al or complex cyst. A mass cannot be excluded. Recommend follow-up multiphase contrast-enhanced CT if clinically feasible. CT DOSING PQRS STATEMENT: One or more of the following individualized dose reduction techniques were utilized for this examinat ion: 1. Automated exposure control 2. Adjustment of the mA and/or kV according to patient size 3. Use of iterative reconstruction technique Electronically signed by: Osmany Wolf MD (08/10/2021 9:25 AM) [id number]
[2021-08-10 11:00] VITALS: BP 126/54
--- NOTE | 2021-08-10 11:15 | PDOC ---
[facility] [facility] PROGRESS NOTE Date of Service DOS: DATE: 08/10/21 TIME: 11:10 Chief Complaint Chief Complaint Sepsis Bilateral atypical pneumonia, possible gram-negative organism Acute UTI Acute infectious and metabolic encephalopathy Lactic acidosis azotemia Chronic kidney disease WES due to vasomotor nephropathy Hyperglycemia uncontrolled Elevated BNP History of hypertension History of depression anxiety History of diabetes mellitus History of GERD History of Present Illness History of Present Illness 08/10/2021 Patient seen and examined, resting in NAD. Patient is on 2L oxygen per [place] Possible discharge to half-way, but awaiting negative covid test as requested by nursing facility Discusses with case technician and RN 08/09/2021 Patient seen and examined. Doing well and in NAD. Possible discharge soon, may need to be evaluated by PT/OT prior to discharge due to history of fall. With possible discharge to half-way. Chart Reviewed Discussed with RN Starting Abx po per Infectious Disease Discharge disposition pending 08/08/2012 Patient seen and examined Discussed with RN Chart reviewed She is resting with no apparent distress She ate very little of her breakfast (she has eggs and toast) Has Zyvox and Zosyn hanging 08/07/21 Patient seen and examined Reviewed chart Discussed with RN Patient urine culture grew E. coli. IV abx switched to piperacillin/tazobactam and linezolid per ID. Patient is more alert and responsive today but still pleasantly confused. Vitals/I&O Vitals/I&O: Vital Signs Date Time Temp Pulse Resp B/P (MAP) Pulse Ox O2 Delivery O2 Flow Rate FiO2 08/10/21 07:00 98.0 89 28 117/56 (76) 95 Nasal Cannula 3.0 98.0 I & O 08/09/21 08/09/21 08/10/21 15:00 23:00 07:00 Intake Total 600 ml 900 ml 800 ml Output Total 600 ml 400 ml Balance 600 ml 300 ml 400 ml Physical Exam Physical Exam: GENERAL: Alert awake answers most of the questions appears comfortable though weak HEENT: Both pupils are round and reacting. No conjunctival lesion, no lesion in the mouth. NECK: Supple, no JVP, no lymphadenopathy. LUNGS: Clear. HEART: S1, S2 regular. ABDOMEN: Soft, nontender, no organomegaly. EXTREMITIES: No edema or cyanosis. Left knee no swelling noted SKIN: Unremarkable except right hip has a superficial stage 2 wound. NEUROLOGICAL: The patient does move all the extremities, generalized weakness Psych calm cooperative General: Alert, Oriented X3, Cooperative, No acute distress Heart: Regular rate, Normal S1, Normal S2, No murmurs, Gallops Lungs: Clear Extremities: No clubbing, No cyanosis, No edema, Normal pulses, No tenderness/swelling Skin: No rashes Labs Labs: Laboratory Tests Test 08/09/21 11:26 08/09/21 17:08 08/09/21 20:13 08/10/21 07:33 Glucose (Fingerstick) 162 mg/dL (70-99) 159 mg/dL (70-99) 125 mg/dL (70-99) 122 mg/dL (70-99) Assessment and Plan Assessmemt and Plan Problems Medical Problems: (1) Dehydration Status: Acute (2) Hypomagnesemia Status: Acute (3) Renal failure Status: Acute (4) Sepsis Status: Acute (5) UTI (urinary tract infection) Status: Acute Sepsis Bilateral atypical pneumonia, possible gram-negative organism Acute UTI Acute infectious and metabolic encephalopathy Lactic acidosis WES due to vasomotor nephropathy azotemia Chronic kidney disease Hyperglycemia uncontrolled Elevated BNP History of hypertension History of depression anxiety History of diabetes mellitus History of GERD Plan: Start Abx PO per ID Appreciate subspecialist input Home meds Trend labs Encourage p.o. intake Titrate oxygen DVT prophylaxis Full code Discharge disposition pending Order PCR covid test Comment Review of Relevant I have reviewed the following items crys (where applicable) has been applied. Medications: Current Medications Medications (Trade) Dose Ordered Sig/Kenia Route PRN Reason Start Time Stop Time Status Last Admin Dose Admin Furosemide (Lasix) 40 mg 1X ONCE IVP 08/10/21 07:00 08/10/21 07:01 DC 08/10/21 06:57 Justifications for Admission Other Justification Altered mental status and UTI, sepsis KAMRYN URIAS III DO Aug 10, 2021 11:15
--- NOTE | 2021-08-10 11:48 | PDOC ---
Renal-Progress Notes Subjective Notes Notes NO NEW COMPLAINTS History of Present Illness Hx of present illness STABLE Vitals Vitals Vital Signs Date Time Temp Pulse Resp B/P (MAP) Pulse Ox O2 Delivery O2 Flow Rate FiO2 08/10/21 11:00 98.8 85 24 126/54 (78) 94 Nasal Cannula 3.0 98.8 Weight Weight [ ] I.O. Intake and Output Intake and Output 08/10/21 07:00 Intake Total 2300 ml Output Total 1000 ml Balance 1300 ml Intake Oral 2300 ml Output Urine Total 1000 ml Labs Labs Laboratory Tests Test 08/09/21 17:08 08/09/21 20:13 08/10/21 07:33 08/10/21 11:11 Glucose (Fingerstick) 159 mg/dL (70-99) 125 mg/dL (70-99) 122 mg/dL (70-99) 165 mg/dL (70-99) Micro Micro Microbiology 08/05/21 Blood Culture - Final, Complete 08/05/21 Urine Culture - Final, Complete 08/05/21 Antimicrobic Susceptibility - Final, Complete Review of Systems Constitutional: yes: weakness, alert Ears/Nose/Throat: Yes: no symptom reported Eyes: Yes: no symptom reported Pulmonary: Yes cough dry Cardiovascular: Yes no symptom reported Gastrointestional: Yes: no symptom reported Genitourinary: Yes: no symptom reported Musculoskeletal: Yes: no symptom reported Psychiatric/Neurological: Yes: no symptom reported Endocrine: Yes: no symptom reported Physical Exam General Appearance: no apparent distress Skin: warm Respiratory: bilateral CTA Heart: S1S2 Abdomen: soft, bowel sounds present Genitourinary: bladder flat Extremities: pulses present Neurology: alert, oriented Musculoskeletal: Osteoarthritis Assessment Assessment IMP ? RIGHT HYDRONEPHROSIS DUE TO URETERAL STONE-PER PT SHE HAD KIDNEY STONES MANY YEARS AGO WES-IMPROVED WITH CR OF 4.0 TO 2.7-LAST CR HERE NL IN 2018 SEPSIS WITH LACTIC ACIDOSIS GRAM NEG E COLI SEPSIS URINARY TRACT INFECTION ENCEPHALOPATHY ? ASP PNEUMONIA DM II HTN PLAN ANTIBIOTICS RENAL SONOGRAM CONT SALINE LABS IN AM DEEPALI WEBBER MD Aug 10, 2021 11:48
--- NOTE | 2021-08-10 14:48 | NUR ---
SW following. Discussed with RN, therapy recommending SNF. CHEL met with pt, pt agreeable to SNF, wants daughter, Majo to decide on facility but also does not have a problem with [facility]. CHEL spoke with Majo - she is agreeable to SNF at [facility]. Referral faxed. Pt accepted at [facility] pending insurance auth. Repeat COVID for placement purposes. CHEL will continue to follow.
[2021-08-10 15:00] VITALS: BP 138/64
[2021-08-10] MEDS: cefTRIAXone IV Push 2 GM VIAL. IVP SCH (17:13)
--- NOTE | 2021-08-10 17:19 | RAD ---
EXAM: RENAL/RETROPERITONAL ULTRASOUND. HISTORY: Hydronephrosis. COMPARISON: None. FINDINGS: Ultrasound of the kidneys, bladder and retroperitoneum was performed. The right kidney measures 11.4 cm. Cortical echogenicity is mildly increased. There is mild hydroneph rosis. A 2.3 cm hypoechoic mass laterally measures 2.3 x 2.2 cm and contains multiple septations. The re is no internal perfusion on Doppler. The left kidney measures 12.5 cm. Cortical echogenicity is mildly increased. There is no hydronephros is. Simple cysts measure 5 x 5 cm in the inner polar region and 6 x 4 cm inferiorly. The bladder is decompressed by Sanchez catheter. The abdominal aorta and inferior vena cava are grossly patent and normal in caliber. IMPRESSION: 1. Mild right hydronephrosis. 2. Complicated cyst versus solid mass laterally within the right kidney measuring 2.[address] with and without contrast could characterize the mass and assess for cause of hydronephrosis if the diagnoses are not already known. Electronically signed by: Leslie Burks MD (08/10/2021 5:16 PM) [id number]
[2021-08-10 19:00] VITALS: BP 138/64
[2021-08-10 23:00] VITALS: BP 118/56
[2021-08-11 03:00] VITALS: BP 141/69
[2021-08-11] MEDS: IV NORMAL SALINE 1000ML BAG 1,000 ML IV SCH ×3 (05:35→07:53)
[2021-08-11 07:00] VITALS: BP 126/105
[2021-08-11] MEDS: PANTOPRAZOLE 40 MG TABLET.DR. PO SCH (07:44)
[2021-08-11] MEDS: MULTIVITAMIN with MINERAL TABLET. PO SCH (07:44)
[2021-08-11] MEDS: ASCORBIC ACID 500 MG TABLET PO SCH (07:44)
[2021-08-11] MEDS: LACTOBACILLUS RHAMNOSUS GG 1 CAPSULE. PO SCH (07:44)
[2021-08-11] MEDS: ENOXAPARIN 30 MG/0.3 ML SYRINGE. SQ SCH (07:45)
[2021-08-11] MEDS: INSULIN LISPRO 300 UNITS/3 ML VIAL. SQ SCH ×2 (07:53→12:14)
[2021-08-11 08:20] LABS: CALCIUM 7.9 mg/dL (8.5-10.1); GFR 29.1; POTASSIUM 3.3 mmol/L (3.5-5.1)
--- NOTE | 2021-08-11 08:43 | PDOC ---
Infectious Disease Note Subjective: Subjective Patient feels better Vital Signs: Vital Signs Vital Signs Date Time Temp Pulse Resp B/P (MAP) Pulse Ox O2 Delivery O2 Flow Rate FiO2 08/11/21 03:00 98.3 79 20 141/69 (93) 98 Nasal Cannula 3.0 98.3 Physical Exam: PHYSICAL EXAM GENERAL: Alert awake answers most of the questions appears comfortable though weak HEENT: Both pupils are round and reacting. No conjunctival lesion, no lesion in the mouth. NECK: Supple, no JVP, no lymphadenopathy. LUNGS: Clear. HEART: S1, S2 regular. ABDOMEN: Soft, nontender, no organomegaly. EXTREMITIES: No edema or cyanosis. Left knee no swelling noted SKIN: Unremarkable except right hip has a superficial stage 2 wound. NEUROLOGICAL: The patient does move all the extremities, generalized weakness Psych calm cooperative Medications: Inpatient Meds: Medications reviewed. Labs: Lab Laboratory Tests Test 08/10/21 11:11 08/10/21 16:20 08/10/21 21:29 08/11/21 07:15 Glucose (Fingerstick) 165 mg/dL (70-99) 155 mg/dL (70-99) 163 mg/dL (70-99) Sodium Level 136 mmol/L (136-145) Potassium Level 3.3 mmol/L (3.5-5.1) Chloride Level 105 mmol/L (98-107) Carbon Dioxide Level 21 mmol/L (21-32) Anion Gap 10 (6-14) Blood Urea Nitrogen 41 mg/dL (7-20) Creatinine 2.0 mg/dL (0.6-1.0) Estimated GFR (Cockcroft-Gault) 29.1 Glucose Level 144 mg/dL (70-99) Calcium Level 7.9 mg/dL (8.5-10.1) Test 08/11/21 07:42 Glucose (Fingerstick) 155 mg/dL (70-99) Micro CT abdomen and pelvis August 10, 2021 1. Patchy ground glass opacity in the right upper lobe. The appearance favors a mild acute inflammatory infectious process. 2.Bronchiectasis with focal consolidation and volume loss in the right middle lobe and lower lobe. Differential considerations include pneumonia, and/or chronic aspiration. The appearance is new since CT angiography of the chest from March 2018. 3. 2 subcentimeter stones in the mid right ureter with mild right hydronephrosis 4. Subcentimeter nonobstructing renal calculi bilaterally 5. 2.7 cm ill-defined hypodense area in the inferior pole the right kidney. This may represent atypical or complex cyst. A mass cannot be excluded. Recommend follow-up multiphase contrast-enhanced CT if clinically feasible. Objective: Assessment: 1. Sepsis with lactic acidosis. 2. Gram-negative sepsis. E. coli 3. Urinary tract infection with sepsis. E. coli 4. Encephalopathy. 5. Pneumonia, possible aspiration. 6. Diabetes. 7. Hypertension. 8. Renal insufficiency. 9. Thrombocytopenia 10. Renal cyst versus renal mass Plan: Plan of Care Dose Rocephin today Thrombocytopenia resolved CT abdomen and pelvis without and renal ultrasound reviewed Per team patient is ready for discharge today Start cefdinir starting tomorrow for 7 days Discussed with nursing staff LOLA GORDILLO MD Aug 11, 2021 08:43
[2021-08-11 09:08] LABS: BASO % 0 % (0-3); EOS # 0.2 x10^3/uL (0.0-0.7); EOS % 1 % (0-3); HEMATOCRIT 33.4 % (36.0-47.0); HEMOGLOBIN 10.8 g/dL (12.0-15.5); LYMPH # 1.2 x10^3/uL (1.0-4.8); LYMPH % 8 % (24-48); MEAN CORPUSCULAR HEMOGLOBIN 26 pg (25-35); MEAN CORPUSCULAR HGB CONC 32 g/dL (31-37); MEAN CORPUSCULAR VOLUME 81 fL (79-100); MONO # 1.7 x10^3/uL (0.0-1.1); MONO % 11 % (0-9); NEUT # 12.1 x10^3/uL (1.8-7.7); NEUT % 79 % (31-73); PLATELET COUNT 101 x10^3/uL (140-400); RED BLOOD COUNT 4.13 x10^6/uL (3.50-5.40); RED CELL DISTRIBUTION WIDTH 15.2 % (11.5-14.5); WHITE BLOOD COUNT 15.2 x10^3/uL (4.0-11.0)
[2021-08-11 09:22] LABS: ALBUMIN 1.6 g/dL (3.4-5.0); DIRECT BILIRUBIN 0.6 mg/dL (0.0-0.2); TOTAL BILIRUBIN 0.8 mg/dL (0.2-1.0); TOTAL PROTEIN 5.7 g/dL (6.4-8.2)
[2021-08-11 11:00] VITALS: BP 125/54
--- NOTE | 2021-08-11 11:27 | PDOC ---
Renal-Progress Notes Subjective Notes Notes NO NEW COMPLAINTS History of Present Illness Hx of present illness STABLE Vitals Vitals Vital Signs Date Time Temp Pulse Resp B/P (MAP) Pulse Ox O2 Delivery O2 Flow Rate FiO2 08/11/21 08:00 Nasal Cannula 3.0 08/11/21 07:00 97.8 75 18 126/105 (112) 99 97.8 Weight Weight [ ] I.O. Intake and Output Intake and Output 08/11/21 07:00 Intake Total 980 ml Output Total 650 ml Balance 330 ml Intake Oral 980 ml Output Urine Total 650 ml # Bowel Movements 1 Labs Labs Laboratory Tests Test 08/10/21 16:20 08/10/21 19:35 08/10/21 21:29 08/11/21 07:15 Glucose (Fingerstick) 155 mg/dL (70-99) 163 mg/dL (70-99) SARS-CoV-2 RNA (LIBERTAD) Negative (Negative) White Blood Count 15.2 x10^3/uL (4.0-11.0) Red Blood Count 4.13 x10^6/uL (3.50-5.40) Hemoglobin 10.8 g/dL (12.0-15.5) Hematocrit 33.4 % (36.0-47.0) Mean Corpuscular Volume 81 fL (79-100) Mean Corpuscular Hemoglobin 26 pg (25-35) Mean Corpuscular Hemoglobin Concent 32 g/dL (31-37) Red Cell Distribution Width 15.2 % (11.5-14.5) Platelet Count 101 x10^3/uL (140-400) Neutrophils (%) (Auto) 79 % (31-73) Lymphocytes (%) (Auto) 8 % (24-48) Monocytes (%) (Auto) 11 % (0-9) Eosinophils (%) (Auto) 1 % (0-3) Basophils (%) (Auto) 0 % (0-3) Neutrophils # (Auto) 12.1 x10^3/uL (1.8-7.7) Lymphocytes # (Auto) 1.2 x10^3/uL (1.0-4.8) Monocytes # (Auto) 1.7 x10^3/uL (0.0-1.1) Eosinophils # (Auto) 0.2 x10^3/uL (0.0-0.7) Basophils # (Auto) 0.0 x10^3/uL (0.0-0.2) Sodium Level 136 mmol/L (136-145) Potassium Level 3.3 mmol/L (3.5-5.1) Chloride Level 105 mmol/L (98-107) Carbon Dioxide Level 21 mmol/L (21-32) Anion Gap 10 (6-14) Blood Urea Nitrogen 41 mg/dL (7-20) Creatinine 2.0 mg/dL (0.6-1.0) Estimated GFR (Cockcroft-Gault) 29.1 Glucose Level 144 mg/dL (70-99) Calcium Level 7.9 mg/dL (8.5-10.1) Total Bilirubin 0.8 mg/dL (0.2-1.0) Direct Bilirubin 0.6 mg/dL (0.0-0.2) Aspartate Amino Transf (AST/SGOT) 53 U/L (15-37) Alanine Aminotransferase (ALT/SGPT) 68 U/L (14-59) Alkaline Phosphatase 297 U/L (46-116) Total Protein 5.7 g/dL (6.4-8.2) Albumin 1.6 g/dL (3.4-5.0) Test 08/11/21 07:42 Glucose (Fingerstick) 155 mg/dL (70-99) Micro Micro Microbiology 08/05/21 Blood Culture - Final, Complete 08/05/21 Urine Culture - Final, Complete 08/05/21 Antimicrobic Susceptibility - Final, Complete Review of Systems Constitutional: yes: weakness, alert Ears/Nose/Throat: Yes: no symptom reported Eyes: Yes: no symptom reported Pulmonary: Yes cough dry Cardiovascular: Yes no symptom reported Gastrointestional: Yes: no symptom reported Genitourinary: Yes: no symptom reported Musculoskeletal: Yes: no symptom reported Psychiatric/Neurological: Yes: no symptom reported Endocrine: Yes: no symptom reported Physical Exam General Appearance: no apparent distress Skin: warm Respiratory: bilateral CTA Heart: S1S2 Abdomen: soft, bowel sounds present Genitourinary: bladder flat Extremities: pulses present Neurology: alert, oriented Musculoskeletal: Osteoarthritis Assessment Assessment IMP ? RIGHT HYDRONEPHROSIS DUE TO URETERAL STONE-PER PT SHE HAD KIDNEY STONES MANY YEARS AGO WES-IMPROVED WITH CR OF 4.0 TO 2.0-LAST CR HERE NL IN 2018 ? RIGHT RENAL MASS SEPSIS WITH LACTIC ACIDOSIS GRAM NEG E COLI SEPSIS URINARY TRACT INFECTION ENCEPHALOPATHY ? ASP PNEUMONIA DM II HTN PLAN ANTIBIOTICS WILL NEED UROLOGY EVAL OP WILL ALSO NEED CONTRAST ENHANCED CT ONCE WES RESOLVED THIS CAN BE DONE OP PRIOR TO UROLOGY EVALUATION REPLETE K LABS IN AM DEEPALI WEBBER MD Aug 11, 2021 11:27
--- NOTE | 2021-08-11 11:59 | PDOC ---
[employer] PROGRESS NOTE Date of Service DOS: DATE: 08/11/21 TIME: 11:58 Chief Complaint Chief Complaint Sepsis Bilateral atypical pneumonia, possible gram-negative organism Acute UTI Acute infectious and metabolic encephalopathy Lactic acidosis azotemia Chronic kidney disease WES due to vasomotor nephropathy Hyperglycemia uncontrolled Elevated BNP History of hypertension History of depression anxiety History of diabetes mellitus History of GERD History of Present Illness History of Present Illness 08/11/2021 Patient seen and examined Discussed with case management She is apparently been accepted [facility] [place] [facility] we will go ahead and discharge today 08/10/2021 Patient seen and examined, resting in NAD. Patient is on 2L oxygen per [place] Possible discharge to [place] [facility], but awaiting negative covid test as requested by nursing facility Discusses with port traffic manager and RN 08/09/2021 Patient seen and examined. Doing well and in NAD. Possible discharge soon, may need to be evaluated by PT/OT prior to discharge due to history of fall. With possible discharge to [place] [facility]. Chart Reviewed Discussed with RN Starting Abx po per Infectious Disease Discharge disposition pending 08/08/2012 Patient seen and examined Discussed with RN Chart reviewed She is resting with no apparent distress She ate very little of her breakfast (she has eggs and toast) Has Zyvox and Zosyn hanging 08/07/21 Patient seen and examined Reviewed chart Discussed with RN Patient urine culture grew E. coli. IV abx switched to piperacillin/tazobactam and linezolid per ID. Patient is more alert and responsive today but still pleasantly confused. Vitals/I&O Vitals/I&O: Vital Signs Date Time Temp Pulse Resp B/P (MAP) Pulse Ox O2 Delivery O2 Flow Rate FiO2 08/11/21 08:00 Nasal Cannula 3.0 08/11/21 07:00 97.8 75 18 126/105 (112) 99 97.8 I & O 08/10/21 08/10/21 08/11/21 15:00 23:00 07:00 Intake Total 480 ml 240 ml 260 ml Output Total 650 ml Balance 480 ml -410 ml 260 ml Physical Exam Physical Exam: GENERAL: Alert awake answers most of the questions appears comfortable though weak HEENT: Both pupils are round and reacting. No conjunctival lesion, no lesion in the mouth. NECK: Supple, no JVP, no lymphadenopathy. LUNGS: Clear. HEART: S1, S2 regular. ABDOMEN: Soft, nontender, no organomegaly. EXTREMITIES: No edema or cyanosis. Left knee no swelling noted SKIN: Unremarkable except right hip has a superficial stage 2 wound. NEUROLOGICAL: The patient does move all the extremities, generalized weakness Psych calm cooperative General: Alert, Oriented X3, Cooperative, No acute distress Heart: Regular rate, Normal S1, Normal S2, No murmurs, Gallops Lungs: Clear Extremities: No clubbing, No cyanosis, No edema, Normal pulses, No tenderness/swelling Skin: No rashes Labs Labs: Laboratory Tests Test 08/10/21 16:20 08/10/21 19:35 08/10/21 21:29 08/11/21 07:15 Glucose (Fingerstick) 155 mg/dL (70-99) 163 mg/dL (70-99) SARS-CoV-2 RNA (LIBERTAD) Negative (Negative) White Blood Count 15.2 x10^3/uL (4.0-11.0) Red Blood Count 4.13 x10^6/uL (3.50-5.40) Hemoglobin 10.8 g/dL (12.0-15.5) Hematocrit 33.4 % (36.0-47.0) Mean Corpuscular Volume 81 fL (79-100) Mean Corpuscular Hemoglobin 26 pg (25-35) Mean Corpuscular Hemoglobin Concent 32 g/dL (31-37) Red Cell Distribution Width 15.2 % (11.5-14.5) Platelet Count 101 x10^3/uL (140-400) Neutrophils (%) (Auto) 79 % (31-73) Lymphocytes (%) (Auto) 8 % (24-48) Monocytes (%) (Auto) 11 % (0-9) Eosinophils (%) (Auto) 1 % (0-3) Basophils (%) (Auto) 0 % (0-3) Neutrophils # (Auto) 12.1 x10^3/uL (1.8-7.7) Lymphocytes # (Auto) 1.2 x10^3/uL (1.0-4.8) Monocytes # (Auto) 1.7 x10^3/uL (0.0-1.1) Eosinophils # (Auto) 0.2 x10^3/uL (0.0-0.7) Basophils # (Auto) 0.0 x10^3/uL (0.0-0.2) Sodium Level 136 mmol/L (136-145) Potassium Level 3.3 mmol/L (3.5-5.1) Chloride Level 105 mmol/L (98-107) Carbon Dioxide Level 21 mmol/L (21-32) Anion Gap 10 (6-14) Blood Urea Nitrogen 41 mg/dL (7-20) Creatinine 2.0 mg/dL (0.6-1.0) Estimated GFR (Cockcroft-Gault) 29.1 Glucose Level 144 mg/dL (70-99) Calcium Level 7.9 mg/dL (8.5-10.1) Total Bilirubin 0.8 mg/dL (0.2-1.0) Direct Bilirubin 0.6 mg/dL (0.0-0.2) Aspartate Amino Transf (AST/SGOT) 53 U/L (15-37) Alanine Aminotransferase (ALT/SGPT) 68 U/L (14-59) Alkaline Phosphatase 297 U/L (46-116) Total Protein 5.7 g/dL (6.4-8.2) Albumin 1.6 g/dL (3.4-5.0) Test 08/11/21 07:42 08/11/21 11:43 Glucose (Fingerstick) 155 mg/dL (70-99) 224 mg/dL (70-99) Assessment and Plan Assessmemt and Plan Problems Medical Problems: (1) Dehydration Status: Acute (2) Hypomagnesemia Status: Acute (3) Renal failure Status: Acute (4) Sepsis Status: Acute (5) UTI (urinary tract infection) Status: Acute Discharge to [facility] [place] [facility] unit see dictation Comment Review of Relevant I have reviewed the following items crys (where applicable) has been applied. Justifications for Admission Other Justification Altered mental status and UTI, sepsis KAMRYN URIAS III DO Aug 11, 2021 11:58
[2021-08-11] MEDS ORDERED: POTASSIUM CHLORIDE 10 MEQ TABLET.ER. PO SCH (12:00)
[2021-08-11] MEDS: cefTRIAXone IV Push 2 GM VIAL. IVP SCH (12:00)
[2021-08-11] MEDS ORDERED: PANT40TA77 PO (12:02)
[2021-08-11] MEDS ORDERED: POTA10TA12 PO (12:02)
[2021-08-11] MEDS ORDERED: AMOX1TAB61 PO (12:02)
--- NOTE | 2021-08-11 12:02 | NUR ---
CHEL following. Discussed with RN, insurance approved SNF transfer to [facility]. Tita at [facility] notified SW of a mini COVID outbreak at their facility and to check if pt's family still wanted pt to come. CHEL spoke with Maria Esther (pt's daughter), notified of mini COVID outbreak. Maria Esther is fine with pt still going to [facility], knowing there is COVID in the building. Tita at [facility] notified. Awaiting discharge orders. CHEL will continue to follow. Addendum: 08/11/21 at 1309 by SUDHEER MILLIGAN Transportation arranged for 1330 via [email or web address]. RN, [facility] and pt's daughter notified.
--- NOTE | 2021-08-11 12:03 | SNU/HH DC ---
DISCHARGE ORDERS DISCHARGE INFORMATION: FINAL DIAGNOSIS Problems Medical Problems: (1) Dehydration Status: Acute (2) Hypomagnesemia Status: Acute (3) Renal failure Status: Acute (4) Sepsis Status: Acute (5) UTI (urinary tract infection) Status: Acute CONDITION ON DISCHARGE: Stable CODE STATUS: Code Status: Full INTERMEDIATE: SNF STAY <30 DAYS: Yes HOSPICE: HOSPICE: No HOSPICE EVAL & TREAT: No LTAC: ADMIT TO LTAC: No POST DISCHARGE ORDERS: ACTIVITY ORDERS: No restrictions, Resume previous activity, Activity as tolerated WEIGHT BEARING STATUS: No restrictions DIET AFTER DISCHARGE: Cardiac CHECKS AFTER DISCHARGE: CHECKS AFTER DISCHARGE: Check blood press - daily TREATMENT/EQUIPMENT ORDERS: ADAPTIVE EQUIPMENT NEEDED: None Physical Therapy For: Evalulation/Treatment Occupational Therapy For: Evaluation/Treatment DISCHARGE MEDICATIONS: Home Meds Active Scripts Amoxicillin/Potassium Clav (AUGMENTIN 875-125 TABLET) 1 Each Tablet, 1 TAB PO BID for . for 7 Days, #14 TAB 0 Refills Prov:CASTLE,NIAL K III DO 08/11/21 Pantoprazole Sodium (PANTOPRAZOLE SODIUM ) 40 Mg Tablet.dr, 40 MG PO DAILYAC for . for 30 Days, #30 TAB.SR Prov:CASTLE,NIAL K III DO 08/11/21 Potassium Chloride (KLOR-CON 10) 10 Meq Tablet.er, 10 MEQ PO DAILYWBKFT for . for 30 Days, #30 TAB.SR Prov:CASTLE,NIAL K III DO 08/11/21 Atorvastatin Calcium (ATORVASTATIN CALCIUM) 10 Mg Tablet, 10 MG PO QHS for 30 Days, #30 TAB Prov:ERUM TEMPLE MD 03/24/18 Amlodipine Besylate (AMLODIPINE BESYLATE) 10 Mg Tablet, 10 MG PO DAILY for 30 Days, #30 TAB Prov:ERUM TEMPLE MD 03/24/18 Reported Medications Cholecalciferol (Vitamin D3) (D3-50) 50,000 Unit Capsule, 1 CAP PO WEEKLY for supplement for 28 Days, #4 CAP 0 Refills 08/06/21 Furosemide (FUROSEMIDE) 20 Mg Tablet, 2 TAB PO DAILY for diuretic, #90 TAB 1 Refill 08/06/21 Famotidine (FAMOTIDINE) 40 Mg Tablet, 40 MG PO DAILY for GERD, TAB 08/06/21 Cetirizine Hcl (CETIRIZINE HCL) 10 Mg Tablet, 1 TAB PO DAILY for allergies, #30 TAB 5 Refills 08/06/21 Metformin Hcl (METFORMIN HCL) 500 Mg Tablet, 500 MG PO BIDWMEALS for ANTI-DI ABETIC, TAB 0 Refills 03/21/18 Losartan/Hydrochlorothiazide (LOSARTAN-HCTZ 100-25 MG TAB) 1 Each Tablet, 1 TAB PO DAILY, TAB 01/05/18 Sertraline Hcl (SERTRALINE HCL) 100 Mg Tablet, 100 MG PO PRN QHS PRN for ANXIETY / AGITATION, TAB 0 Refills 01/05/18 KAMRYN URIAS III DO Aug 11, 2021 12:03
--- NOTE | 2021-08-11 12:15 | DS ---
DATE OF DISCHARGE: 08/11/2021 ADMISSION DIAGNOSES: Sepsis, urinary tract infection, acute renal failure, dehydration, metabolic encephalopathy, bilateral atypical pneumonia, lactic acidosis, hyperglycemia. DISCHARGE DIAGNOSES: Resolving sepsis, resolving urinary tract infection, resolving metabolic encephalopathy, resolving dehydration, history of hypertension, hyperlipidemia, debility, gastroesophageal reflux disease, diabetes, depression, anxiety. HOSPITAL COURSE: The patient is a pleasant elderly female who presented to the ER with sepsis on 08/05. We admitted the patient, gave her IV antibiotics and fluids. She is also dehydrated. We trended her labs. We did physical therapy, occupational therapy and basically over the past few days, she slowly returned to baseline. Today, I saw and examined her. She is alert and oriented, he wanted to go home, but she is quite weak. We plan to discharge to [facility]. DISPOSITION: USP. ACTIVITY: As tolerated. DIET: Low sodium. MEDICATIONS: Please see the MRAD. Augmentin 875 b.i.d. for 7 more days, Protonix 40 a day, potassium 10 a day, amlodipine 10 a day, atorvastatin 10 a day, cetirizine 10 a day, vitamin D, Pepcid 40 daily, Lasix 40 daily, hydrochlorothiazide 100/25 one daily, metformin 500 b.i.d. and sertraline 100 at bedtime p.r.n. Total time [address]: JOSH/noe TID: [id number]
--- NOTE | 2021-08-11 13:13 | NUR ---
Discharge Note: AZALEA ROMERO [facility] Discharge instructions and discharge home medications reviewed with Other facility and a copy given. All questions have been answered and understanding verbalized. The following instructions and handouts were given: d/c packet sent with pt to [facility] Discontinued lines and drains: Peripheral IV intact. [facility] with [facility] Personnel via [facility]
== END 2021-08-11 14:18 | DRG 871 ==
LOC: ER 16:17 → 5 SOUTH 17:35
PROVIDERS: ADMIT Internal Medicine; ATTEND Internal Medicine
DX: A41.50 Gram-negative sepsis, unspecified (principal); G93.41 Metabolic encephalopathy; J18.9 Pneumonia, unspecified organism; N17.0 Acute kidney failure with tubular necrosis; N39.0 Urinary tract infection, site not specified; B96.20 Unspecified Escherichia coli [E. coli] as the cause of diseases classified elsewhere; D69.6 Thrombocytopenia, unspecified; E11.22 Type 2 diabetes mellitus with diabetic chronic kidney disease; E11.65 Type 2 diabetes mellitus with hyperglycemia; E78.5 Hyperlipidemia, unspecified; E83.42 Hypomagnesemia; E86.0 Dehydration; I12.9 Hypertensive chronic kidney disease with stage 1 through stage 4 chronic kidney disease, or unspecified chronic kidney disease; M47.816 Spondylosis without myelopathy or radiculopathy, lumbar region; N18.9 Chronic kidney disease, unspecified; N28.89 Other specified disorders of kidney and ureter; Z85.828 Personal history of other malignant neoplasm of skin; Z86.711 Personal history of pulmonary embolism; Z87.442 Personal history of urinary calculi; F32.A Depression, unspecified; F41.9 Anxiety disorder, unspecified; K21.9 Gastro-esophageal reflux disease without esophagitis; Z60.2 Problems related to living alone
CPT/HCPCS: 36415; 70450; 71045; 71250; 72125; 72170; 74176; 76770; 80048; 80053; 80076; 81001; 82550; 82607; 82962; 83605; 83735; 83880; 84100; 84443; 84484; 85007; 85025; 87040; 87077; 87086; 87186; 87205; 87426; 87449; 87641; 93005; 96361; 96374; J0696; J0780; J1650; J1815; J1940; J2020; J2405; J2543; J3475; J3490; J7030; J7060; U0003; U0005; 97110-GP; 97530-GP; 97535-GO; 99291-25; G0378

== ENCOUNTER → 2021-08-26 | Outpatient (CLI) | payer MEDICARE ==
[2021-08-11 11:00] VITALS: BP 125/54
[~2021-08-26] MED LIST changes: +AMOX1TAB61 PO; +CETI10TA16 PO; +CHOL500021 PO; +FAMO40TA4 PO; +FURO20TA3 PO; +PANT40TA77 PO; +POTA10TA12 PO; +TRAM-48 PO
--- NOTE | 2021-08-26 11:00 | RAD ---
Site ID: [id number] EXAMINATION: Right lower extremity duplex venous ultrasound. TECHNIQUE: DVT protocol. Multiple sonographic images with color Doppler and waveform interrogation we re performed of the right lower extremity veins with compression and augmentation maneuvers. INDICATION: 80 years Female, : Right Leg Numbness and Pain / FINDINGS: There is lack of compressibility of the common femoral vein demonstrating large from thromb us with the flow and small portion of the lumen remaining, nearly occlusive. The clot extends into th e catheter great saphenous vein, involves the femoral vein, the popliteal vein and the peroneal vein. The posterior tibial vein is not visualized. IMPRESSION: Positive for DVT, extensive in the right lower extremity appears to involve the entire length of the right common femoral vein. CT scan with venous phase or venogram could be considered to evaluate for iliac vein extension of the thrombus if needed. Critical result: Findings was given to Dr. eric Ball and the nurse taking care of the patient Ms Guevara at 08/26/2021 10:40AM. RESULT CODE: (C) Electronically signed by: Leonard Luis MD (08/26/2021 10:58 AM) [id number]
== END ==
LOC: US 09:44
PROVIDERS: ATTEND Physical Medicine & Rehabilitation
DX: I82.411 Acute embolism and thrombosis of right femoral vein (principal); R20.0 Anesthesia of skin
CPT/HCPCS: 93971

== ENCOUNTER → 2021-08-31 | Outpatient (CLI) | payer MEDICARE ==
[2021-08-11 11:00] VITALS: BP 125/54
--- NOTE | 2021-08-31 13:15 | RAD ---
MRI of the lumbar spine without contrast 08/31/2021 CLINICAL HISTORY: Low back pain which radiates down the right leg. TECHNIQUE: Unenhanced T1-weighted and T2-weighted sagittal and axial and inversion recovery sagittal images of the lumbar spine were obtained. FINDINGS: Images from the study are degraded by patient motion. For the purposes of this dictation 5 lumbar vertebrae have been assumed. The last reasonly well-defin ed lumbar-appearing disc space will be referred to as L5-S1. L5 is partially sacralized. Mild S-shaped curvature of the thoracolumbar spine is seen. Mild anterolisthesis of L3 in relation L4 is noted. Mild to moderate anterolisthesis of L4 in relation L5 is seen. Degenerative signal changes are seen involving all the disks of the lumbar spine. Degenerative signal changes are seen within th e marrow surrounding these discs. Loss of height of the L4-5 and L5-S1 discs is noted. The conus medu llaris is normal morphology, position, and signal characteristics. Rounded high signal intensity lesi ons are seen involving both kidneys on the T2-weighted images. These measure 1 to 4 cm in size. They likely represent cysts. No further imaging evaluation is recommended. At the L1-2 disc space there is a mild generalized disc bulge. Degenerative changes are seen involvin g the facet joints, left greater than right. There is mild ligamentum flavum hypertrophy bilaterally. These findings when combined do not result in significant central spinal canal stenosis. Mild to mod erate left greater than right neural foraminal stenosis is seen. At the L2-3 disc space there is a mild to moderate generalized disc bulge. This is eccentric to the r ight. Degenerative changes are seen involving the facet joints bilaterally. There is moderate ligamen naveed flavum hypertrophy bilaterally. These findings when combined results in moderate to severe right greater than left central spinal canal stenosis. Mild to moderate right greater than left neural fora patrizia stenosis is seen. At the L3-4 disc space there is a moderate generalized disc bulge. This is eccentric to the left. Deg enerative changes are seen involving the facet joints bilaterally. There is moderate ligamentum flavu m hypertrophy bilaterally. Findings when combined result in moderate to severe central spinal canal s tenosis. Mild to moderate left greater than right neural foraminal stenosis is seen. At the L4-5 disc space there is a mild to moderate generalized disc bulge. Degenerative changes are s een involving the facet joints, right greater than left. There is mild ligamentum flavum hypertrophy bilaterally. Findings when combined result in mild central spinal canal stenosis. Moderate to severe right greater than left neural foraminal stenosis is seen. The L5-S1 disc space is within normal limits. IMPRESSION: The changes of degenerative disc disease are seen throughout the lumbar spine. These find ings results in moderate to severe right greater than left central spinal canal stenosis at L2-3, mod erate to severe central spinal canal stenosis at L3-4 and mild central spinal canal stenosis at L4-5. Mild to moderate left greater than right neural foraminal stenosis is seen at L1-2. Mild to moderate right greater than left neural foraminal stenosis is seen at L2-3. Mild to moderate left greater chance n right neural foraminal stenosis is seen at L3-4. Moderate to severe right greater than left neural foraminal stenosis is seen at L4-5. Electronically signed by: Aristeo Farmer MD (08/31/2021 1:12 PM) [id number]
--- NOTE | 2021-08-31 16:11 | RAD ---
XR EXAM OF ANKLE_RIGHT 3VIEWS History: Reason: SWELLING AND PAIN. / Spl. Instructions: / History: Technique: 3 views right ankle. Comparison: None. Findings: No dislocation. No acute fracture. Mild ankle degenerative changes. Ankle soft tissue swelling. Plant ar calcaneal spur. Impression: 1. Mild ankle DJD. 2. Lower extremity soft tissue swelling. Electronically signed by: Iglesia Kraft DO (08/31/2021 4:09 PM) [id number]
== END ==
LOC: MRI 08:20
PROVIDERS: ATTEND Physical Medicine & Rehabilitation
DX: M47.816 Spondylosis without myelopathy or radiculopathy, lumbar region (principal); M48.061 Spinal stenosis, lumbar region without neurogenic claudication; M51.36 Other intervertebral disc degeneration, lumbar region; M19.071 Primary osteoarthritis, right ankle and foot; M77.31 Calcaneal spur, right foot; M79.89 Other specified soft tissue disorders
CPT/HCPCS: 72148; 73610

== ENCOUNTER → 2021-09-22 | Outpatient (CLI) | payer MEDICARE ==
[~2021-09-22] MED LIST changes: +ACET-1871 PO; +APIX2.5T PO; +OMEP20CA16 PO; +ONDA-84 PO
--- NOTE | 2021-09-22 12:58 | PDOC1 ---
INITIAL PAIN CONSULT DATE OF SERVICE: DOS: DATE: 09/22/21 TIME: 12:47 CHIEF COMPLAINT: Chief Complaint: Low back and right lower extremity pain HISTORY OF PRESENT ILLNESS: 80-year-old female presents history of pain low back right lower extremity for about 2 months status post fall at home in middle July patient reports she was unconscious and woke up later in hospital is now at [facility] for rehabilitative care I reports that she is planning on being discharged in about 1 week or less patient reports pain in the low back right lower extremity which is been getting worse with time and feels numb in the right posterior gluteus and low back as well as rating to the leg the right anterior thigh lateral thigh medial thigh medial lower leg to the ankle on the right side patient also has pain in the left knee which is separate but to the leg and her low back is her chief complaint. Patient reports is tingling and numb stabbing and shooting worse with walking standing changing positions quickly getting about a chair and right legs become much less mobile and much more painful also with some swelling in the right leg which has developed since her fall. Patient reports it wakes her from sleep occasionally she currently has a Sanchez catheter in her bladder and is not sure of any incontinence prior to that patient is using a wheelchair to get along as is too uncomfortable to put weight on her right leg. Patient rates her disability rating is a 7-8 a scale of 10 with self-care activities as well as to with light support activities of she is mostly sitting increased pain with all activities. Patient has had physical therapy and is currently undergoing physical therapy at [facility] as well. Patient reports taking Tylenol which does decrease the pain but only minimally currently. Patient did have a MRI scan of the lumbar spine dated August 31, 2021 showing moderate to severe right greater than left central spinal canal stenosis L2-3 moderate to severe central spinal canal stenosis at L3-4 mild central canal stenosis at L4-5 with mild to moderate left greater than right neuroforaminal stenosis at L1 to a moderate to severe right greater than left neuroforaminal stenosis at L4-5. PAST MEDICAL HISTORY: PMH: Type 2 diabetes, hyperlipidemia, hypercoagulability, gastroesophageal reflux, arthritis PREVIOUS SURGERIES: Past Surgical Hx: IVC filter, cataract extraction, buccal hernia repair, and ankle repair right ankle, right rotator cuff repair CURRENT MEDICATIONS: Current Meds: Active Scripts Medications Dose Route/Sig Max Daily Dose Days Date Category Omeprazole 20 Mg Capsule.dr 1 Cap PO DAILY 09/22/21 Reported Acetaminophen Ext.release (Acetaminophen) 650 Mg Tablet.er 650 Mg PO PRN Q8HRS PRN 09/22/21 Reported Ondansetron Hcl 4 Mg Tablet 1 Tab PO PRN Q6HRS 09/22/21 Reported Eliquis (Apixaban) 2.5 Mg Tablet 2.5 Mg PO BID 09/22/21 Reported Ultram (Tramadol Hcl) 50 Mg Tablet 1 Tab PO PRN Q6HRS PRN MDD 4 Tablet(s) 08/19/21 Rx Klor-Con 10 (Potassium Chloride) 10 Meq Tablet.er 10 Meq PO DAILYWBKFT 30 08/11/21 Rx D3-50 (Cholecalciferol (Vitamin D3)) 50,000 Unit Capsule 1 Cap PO WEEKLY 08/06/21 Reported Cetirizine Hcl 10 Mg Tablet 1 Tab PO DAILY 08/06/21 Reported Atorvastatin Calcium 10 Mg Tablet 10 Mg PO QHS 30 03/24/18 Rx Amlodipine Besylate 10 Mg Tablet 10 Mg PO DAILY 30 03/24/18 Rx Metformin Hcl 500 Mg Tablet 500 Mg PO BIDWMEALS 03/21/18 Reported Sertraline Hcl 100 Mg Tablet 100 Mg PO PRN QHS PRN 01/05/18 Reported ALLERGIES; Allergies: Coded Allergies: No Known Drug Allergies (Unverified , 01/05/18) FAMILY HISTORY: Family Hx: Heart disease, cancer SOCIAL HISTORY: Social Hx: Patient does not jero alcohol does not smoke not use any illegal illicit or recreational drugs is currently and living with her daughter lives currently at [facility] in [facility] REVIEW OF SYSTEMS: ROS: Positive for those items mentioned in history of present illness, all systems are reviewed, otherwise negative ,and are complete full and well-documented on patient's chart. PHYSICAL EXAM: VS: Blood pressures 140/72 pulse 75 respirations 12 temperature is 98.2 F height is 5 foot 3 inches weight is 277 pounds PE: PHYSICAL EXAMINATION: GENERAL: The patient is awake, alert, oriented, appropriate, very pleasant in demeanor HEENT: Shows normocephalic, atraumatic. Extraocular movements are intact and symmetrical. Oral cavity: Mucous membranes moist and pink. NECK: Shows anterior throat supple without palpable lymphadenopathy noted. Swallow reflex symmetrical. CHEST: Shows normal on inspection. Breath sounds are clear bilaterally, distant but no rales or rhonchi. HEART: Shows S1, S2 clear. No murmurs auscultated. ABDOMEN: Soft, nontender, nondistended, obese. No palpable organomegaly is noted. BACK: Shows spine grossly in the midline. Normal-appearing cervical lordotic curvature. There is increased thoracic kyphosis, some flattening of the lumbar lordotic curvature. Lumbar paraspinous muscles show symmetrical on inspection, on palpation shows some moderate tenderness diffusely throughout the upper, middle and lower distribution of the paraspinous muscles bilaterally and also into the lower thoracic paraspinous musculature, firm and tender, but without specific trigger points, without radiation of pain. The patient has good rotational motion of the lumbar spine, both laterally as well as extension and flexion without significant difficulty. No tenderness over the spinous processes, sacrum or sacroiliac regions. EXTREMITIES: Lower extremities show deep tendon reflexes 1 to in the patellar and tendo calcaneus tendons. Motor exam is 3 on a scale of 5 with right dorsiflexion, extension, quadriceps and hamstring flexion and 5/5 on the left. Peripheral pulses are 1+ posterior tibial. 2+ peripheral edema is noted in the right ankle and two thirds of the knee on the anterior tibia, left side shows only 1+ edema at the ankle only. Lower extremities are warm and dry to touch, equal in color and appearance. The patient is in wheelchair, has difficulty getting up from the wheelchair as well able to do so partially to assess patient's gait was too painful for her to put weight on the right lower extremity. SKIN: Shows warm and dry, good turgor. No edema. No sores, rashes or bruising throughout. IMPRESSION: Impression: 80-year-old female with approximate 2-month history increasing pain low back right lower extremity radicular fashion. MRI scan lumbar spine as noted Type 2 diabetes Hypercoagulability on anticoagulation therapy Plan: Options were discussed with the patient including conservative measures continued physical therapies interventional techniques. Patient would like to pursue eventual techniques. We will first check with her primary physician regarding the safety of holding her Eliquis for 3 days prior to lumbar epidural steroid injection. If deemed safe and appropriate to have patient hold the Eliquis will return for epidural steroid injection at that time. In the meantime patient continue with stretching strength exercises and will continue with physical therapy as is ongoing at [facility]. VJ ANDERSON MD Sep 22, 2021 12:57
== END | disposition home or self-care (01) ==
LOC: PNCL 10:01
PROVIDERS: ATTEND Anesthesiology
DX: M54.50 Low back pain, unspecified (principal); M79.604 Pain in right leg; E11.9 Type 2 diabetes mellitus without complications; E78.00 Pure hypercholesterolemia, unspecified; K21.9 Gastro-esophageal reflux disease without esophagitis; M19.90 Unspecified osteoarthritis, unspecified site; F41.9 Anxiety disorder, unspecified; Z79.84 Long term (current) use of oral hypoglycemic drugs; Z79.899 Other long term (current) drug therapy; Z79.01 Long term (current) use of anticoagulants; Z98.890 Other specified postprocedural states; Z82.49 Family history of ischemic heart disease and other diseases of the circulatory system
CPT/HCPCS: 99214; G0463

== ENCOUNTER → 2021-09-25 | Outpatient (CLI) | payer MEDICARE ==
[~2021-09-25] MED LIST changes: +IOHEXOL 180 MG/ML 10 ML VIAL. ONE; +methylPREDNISolone ACETATE 40 MG/ML VIAL. ONE; +methylPREDNISolone ACETATE 80 MG/ML VIAL. ONE
--- NOTE | 2021-09-25 08:32 | PDOC ---
Progress Note - Pain Clinic Date of Service: DOS: DATE: 09/25/21 TIME: 08:29 Diagnosis: Dx: Lumbar radiculopathy with lumbar degenerative disease and lumbar spinal stenosis History or Present Illness: HPI: 80-year-old female returns after holding Eliquis for 3days with pain low back right lower extremity posterior gluteus posterior lateral thigh lateral anterior thigh anterior medial leg as well patient reports the pain is significant she has been cleared to hold her Eliquis and has been off now for 3days reports pain is in the low back right leg is described as severe at times with weightbearing and still having significant difficulty putting weight on her right leg with any type of weightbearing even to transfer from standing to sitting needs significant help to do so because she is unable to bear weight on her right leg for more than just a few seconds patient rates her pain as an 8 on scale 10 is worst average and least is an 8 today patient reports no new motor or sensory deficits no new bowel or bladder incontinence and has been off her Eliquis for 3 days. Physical Exam: VS: Blood pressure is 158/73 pulse 78 respirations 20 temperature is 98.1 F height and weight are deferred as patient is in a wheelchair. PE: PHYSICAL EXAMINATION: GENERAL: The patient is awake, alert, oriented, appropriate, very pleasant in demeanor HEENT: Shows normocephalic, atraumatic. Extraocular movements are intact and symmetrical. NECK: Shows anterior throat supple without palpable lymphadenopathy noted. Swallow reflex symmetrical. CHEST: Shows normal on inspection. Breath sounds are clear bilaterally. HEART: Shows S1, S2 clear. No murmurs auscultated. ABDOMEN: Soft, nontender, nondistended. No palpable organomegaly is noted. BACK: Shows spine grossly in the midline. Normal-appearing cervical lordotic curvature. There is slightly increased thoracic kyphosis, some minor flattening of the lumbar lordotic curvature. Lumbar paraspinous muscles show symmetrical on inspection, on palpation shows some moderate tenderness diffusely throughout the upper, middle and lower distribution of the paraspinous muscles, but without specific trigger points, without radiation of pain. The patient has good rotational motion of the lumbar spine, both laterally as well as extension and flexion without significant difficulty. EXTREMITIES: Lower extremities show deep tendon reflexes 1+ in the patellar and tendo calcaneus tendons. Motor exam is 3 on a scale of 5 with right dorsiflexion, extension, quadriceps and hamstring flexion and 5/5 on the left. Peripheral pulses are 1+ posterior tibial. 2+ peripheral edema is noted right lower extremity. SKIN: Shows warm and dry, good turgor. No edema. No sores, rashes or bruising throughout. Procedure: Procedure: Options were discussed with the patient. Patient's old chart was reviewed as her current medication regimen updated current review of systems updated today as well. We will proceed with a lumbar epidural steroid injection today with fluoroscopic guidance. Risks were discussed including but not limited to: Bleeding, infection, possibility of epidural hematoma and subsequent neurological compromise, dural puncture, headaches, spinal cord and/or nerve damage, side effects of steroid medication, and poor results regarding pain control. Patient understands and wished to proceed. Patient will return to the clinic in approximately 3 weeks for follow-up, was counseled as to return appointment, activity level, and side effects to be aware of. Medication Injected: Med Injected: Procedure is lumbar epidural steroid injection under local anesthetic using sterile prep and drape at the L4-5 level using C-arm fluoroscopic guidance in both AP and lateral views medications injected is 120 mg Depo-Medrol +10mL preservative-free normal saline and 2 mL contrast- condition at discharge is stable patient tolerated procedure well had no complications. Condition at Discharge: Condition at Discharge: Condition at discharge is stable, patient tolerated the procedure well and had no complications. VJ ANDERSON MD Sep 25, 2021 08:32
--- NOTE | 2021-09-25 08:33 | PDOC4 ---
Procedure Note: ICD 10 Code: ICD 10 Code: M54.16 M51.36 M48.06 Procedure Note: Patient was consented for lumbar epidural steroid injection with fluoroscopic guidance. Risks were discussed including but not limited to: Bleeding, infection, possibility of epidural hematoma and subsequent neurological compromise, dural puncture, headaches, spinal cord and/or nerve damage, side effects of steroid medication, and poor results regarding pain control. Patient understands and wished to proceed. Procedure is lumbar epidural steroid injection under local anesthetic using ster ile prep and drape at the L4-5 level using C-arm fluoroscopic guidance in both AP and lateral views medications injected is 120 mg Depo-Medrol +10mL preservative-free normal saline and 2 mL contrast- condition at discharge is stable patient tolerated procedure well had no complications. VJ ANDERSON MD Sep 25, 2021 08:33
== END | disposition home or self-care (01) ==
LOC: PNCL 07:56
PROVIDERS: ATTEND Anesthesiology
DX: M51.16 Intervertebral disc disorders with radiculopathy, lumbar region (principal); M48.061 Spinal stenosis, lumbar region without neurogenic claudication; I10 Essential (primary) hypertension; E78.00 Pure hypercholesterolemia, unspecified; E11.9 Type 2 diabetes mellitus without complications; K21.9 Gastro-esophageal reflux disease without esophagitis; F41.9 Anxiety disorder, unspecified; Z79.84 Long term (current) use of oral hypoglycemic drugs; Z79.899 Other long term (current) drug therapy; Z98.890 Other specified postprocedural states; Z82.49 Family history of ischemic heart disease and other diseases of the circulatory system
CPT/HCPCS: 62323; J1030; J1040; Q9965; 62322